=== PATIENT | male | born 1970 ===

== ENCOUNTER 2018-02-14 15:38 | Inpatient (IN) | payer MEDICARE, OTHER, SELFPAY ==
[2018-02-14] MEDS ORDERED: Naloxone HCl 2 mg/2 ml Syringe ONE (15:40)
[2018-02-14] MEDS ORDERED: Norepinephrine 8 MG/0.9% NS 250 ML ONE (15:56)
[2018-02-14] MEDS ORDERED: Amiodarone HCl 450 MG, Admixture Fee 1 EACH in Dextrose 5% in Water 250 ML IVPB SCH (16:00)
[2018-02-14] MEDS ORDERED: EPINEPHrine 1 MG, Admixture Fee 1 EACH in Dextrose 5% in Water 250 ML IVPB SCH (16:00)
[2018-02-14] MEDS ORDERED: Potassium Chloride 20 MEQ/100 ML PREMIX BAG ONE (16:08)
[2018-02-14 16:10] LABS: Actual Bicarbonate (HCO3a) 22.9 mEq/L (22-26); Base Excess (BEa) -1.1 mEq/L (0 (+/-) 2.5); CO2 Tension 36.1 mmHg (35.0-45.0); O2 Tension (PaO2) 43.7 mmHg (80.0-100.0); pH, Arterial 7.42 (7.35-7.45)
[2018-02-14 16:11] LABS: Calcium, Ionized 0.8 mmol/L (1.12-1.30); Hematocrit-ABG 34.6 % (42.0-52.0); Hemoglobin (Hb) 13.3 g/dL (14.0-18.0)
[2018-02-14 16:12] LABS: ALV-art Gradient 621.175 (0-20); Analyzer IN Cardio ER; Puncture Site RRA
[2018-02-14 16:29] LABS: #Basophils 0.1 thou/uL (0.0-0.2); #Eosinphils 0.1 thou/uL (0.0-0.7); #Lymphocytes 3.1 thou/uL (1.20-3.40); #Monocytes 0.4 thou/uL (0.11-0.59); #Neutrophils 7.2 thou/uL (1.40-6.50); %Basophils 1.2 % (0.0-1.0); %Eosinophils 1.2 % (0.0-10.0); %Lymphocytes 28.4 % (21.0-51.0); %Monocytes 3.6 % (0.0-10.0); %Neutrophils 65.5 % (42.0-75.0); Hemoglobin 14.3 g/dL (14.0-18.0); Mean Corpuscular HGB CONC 31.8 g/dL (32.0-36.0); Mean Corpuscular Hemoglobin 32.7 pg (27.0-31.0); Mean Platelet Volume 7.3 fL (7.4-10.4); Platelet Count 181 thou/uL (130-400); RBC Distribution Width 13.2 % (11.5-14.5); Red Blood Cell (RBC) Count 4.36 mill/uL (4.70-6.10)
--- NOTE | 2018-02-14 16:33 | RAD ---
PORTABLE CHEST ONE VIEW: Date: 02-14-18 Time: 3:58 p.m. History: Respiratory failure. CPR. FINDINGS/IMPRESSION: There is a endotracheal tube with the tip at the level of the clavicular heads. There is a right subc lavian central line with tip in the projection of the right atrium. The heart size is normal. There i s pulmonary vascular congestion with patchy opacities in the right suprahilar and infrahilar lung zon es. No pneumothoraces or large effusions are seen. POS: OFF
[2018-02-14 16:39] LABS: CKMB 1.5 ng/mL (0-6.6); Troponin I Less than 0.010 ng/mL (< 0.028)
[2018-02-14 16:44] LABS: INR-International Normal Ratio 1.4; Prothrombin Time 17.1 SEC (12.0-14.7)
[2018-02-14] MEDS ORDERED: EPINEPHrine 4 MG in Dextrose 5% in Water 250 ML IV SCH (16:45)
[2018-02-14 16:56] LABS: ALT (SGPT) 343 U/L (8-55); AST (SGOT) 860 U/L (5-34); Alkaline Phosphatase 83 U/L (40-150); Anion Gap 13 mmol/L (10-20); BUN (Urea Nitrogen) Less than 4 mg/dL (8.9-20.6); Bilirubin, Total 0.5 mg/dL (0.2-1.2); CK (CPK) 369 U/L (30-200); Calc. Creatinine Clearance 0 mL/min (70-130); Calcium 9.1 mg/dL (7.8-10.44); Carbon Dioxide 15 mmol/L (22-29); Chloride 122 mmol/L (98-107); Estimated GFR-MDRD Greater than 90; Globulin 1.5 g/dL (2.4-3.5); Glucose 253 mg/dL (70-105); Protein, Total 3.5 g/dL (6.0-8.3); Sodium 147 mmol/L (136-145)
[2018-02-14] MEDS ORDERED: Atropine Sulfate 1 mg/10 ml Syringe ONE (17:00)
[2018-02-14] MEDS ORDERED: Calcium Chloride 1 GM/10 ML Abboject SYRINGE ONE (17:00)
[2018-02-14] MEDS ORDERED: Sodium Bicarb 50 MEQ/50 ML Abboject 8.4% SYRINGE ONE (17:00)
[2018-02-14] MEDS ORDERED: EPINEPHrine 1 MG/10 ML Abboject SYRINGE ONE (17:00)
[2018-02-14 17:05] LABS: Magnesium 1.3 mg/dL (1.6-2.6)
[2018-02-14 17:07] LABS: Phosphorus 1.3 mg/dL (2.3-4.7)
[2018-02-14] MEDS ORDERED: Magnesium Sulfate 2 GM/100 ML BAG ONE (17:10)
[2018-02-14] MEDS ORDERED: SODIUM CHLORIDE 0.9% IVPB ONE (17:30)
[2018-02-14] MEDS ORDERED: SODIUM PHOSPHATE IVPB ONE (17:30)
--- NOTE | 2018-02-14 17:33 | HP ---
PRIMARY CARE PHYSICIAN: Sae Head M.D. REASON FOR ADMISSION/CHIEF COMPLAINT: Transfer from [facility] for respiratory failure/drug overdose/ hypotension/status post CPR. HISTORY OF PRESENT ILLNESS: The patient is a 47-year-old male with unknown past medical history, was brought into [facility] for overdose. Apparently, the patient was in standoff with police department . He then locked himself and took several of his home medications and drank alcohol. He was found l ethargic and was brought into the emergency room. In the emergency room, his initial vital signs showed heart rate of 67 with blood pressure of 122/84. He was unresponsive and was subsequently intubated in the emergency room. He then was started on e pinephrine after a central line placement. EMS found empty bottles of several of his home medication s including hydrocodone, morphine sulfate, Valium, propranolol, amitriptyline, ibuprofen and Benadryl . On his way to [place], patient was started on CPR almost for 30-35 minutes. At this time, patient is o n mechanical ventilation with epinephrine, norepinephrine and amiodarone drip. He was found to have prolonged QT interval. He has received calcium chloride, glucagon bolus and has been started on drip along with Narcan. PAST MEDICAL HISTORY: Cannot be obtained from the patient due to current cognitive status. No famil y at the bedside. PAST SURGICAL HISTORY: Cannot be obtained from the patient due to current cognitive status. No fami ly at the bedside. ALLERGIES: Cannot be obtained from the patient due to current cognitive status. No family at the [facility]. HOME MEDICATIONS: Cannot be obtained from the patient due to current cognitive status. No family at the bedside. SOCIAL HISTORY: Cannot be obtained from the patient due to current cognitive status. No family at t bedside. FAMILY HISTORY: Cannot be obtained from the patient due to current cognitive status. No family at [facility] bedside. REVIEW OF SYSTEMS: Cannot be obtained from the patient due to current cognitive status. No family a t the bedside. PHYSICAL EXAMINATION: CURRENT VITAL SIGNS: Showed respirations of 18 on mechanical ventilation, pulse rate of 54, blood pr essure of 108/82 with O2 saturation of 81% on mechanical ventilation. GENERAL: A 47-year-old male, intubated on mechanical ventilation, unresponsive. HEENT: Head is atraumatic, normocephalic. Pupils are around 7 mm not equally round. Corneal reflex was negative. Pupils were sluggishly reacting to light. NECK: Neck collar noted. HEART: S1 and S2 present. Decreased air entry at bilateral bases. No wheezing or rhonchi. No rubs or gallops appreciated. No heaves or pulsation. ABDOMEN: Soft. Bowel sounds present. No peritoneal signs. No rigidity. EXTREMITIES: No edema or calf tenderness. NEUROLOGIC/PSYCHIATRIC: Examination could not be done due to current cognitive status. SKIN: Warm and dry. LYMPH NODES: No palpable lymph nodes in the neck. LABORATORY DATA AND IMAGING DATA: 1. CBC showed WBC of 11 with hemoglobin 14.3, INR of 1.4. ABG showed pH 7.42 with pCO2 36.1, bicarb earline 22.9, pO2 43.7 with saturation in 80s. 2. Chemistries showed sodium 147, potassium 3, chloride 122, bicarbonate 15, BUN less than 4, creati nine 0.66, AST of 860, and ALT 343. 3. Chest x-ray by my review was negative for infiltrate. EKG by my review showed sinus bradycardia with prolonged QT and nonspecific ST-T wave changes. IMPRESSION: 1. Drug overdose with tricyclic antidepressants, beta blockers, benzodiazepines, opioids, and Soma. 2. Acute hypoxic respiratory failure. 3. Shock secondary to #1 on pressors. 4. Status post more than 30 minutes of CPR. 5. Hypokalemia. 6. Abnormal liver function tests, probably secondary to shock liver. 7. Prolonged QT. PLAN: The patient will be monitored in the Intensive Care Unit. We will continue pressors. Amiodar one drip will be discontinued. I confirmed with Dr. Cohn. Critical Care will be consulted and has been notified. We will continue IV fluids with bicarbonate. We will monitor QT interval. Continue glucagon drip. We will continue epinephrine and norepinephrine. We will check cortisol level. We will monitor electrolytes closely. Plan of care will be discussed with the family when they arrive.
[2018-02-14 17:44] LABS: Acetaminophen Less than 6.0 mcg/mL (10.0-30.0); Alcohol 187 mg/dL (Less than 10); Salicylate Less than 8.0 mg/dL (15.0-30.0)
[2018-02-14] MEDS ORDERED: Sodium Bicarbonate 150 MEQ in Dextrose 5 %-0.45 % NaCl 1,000 ML IV SCH (19:00)
[2018-02-14 19:03] LABS: Bilirubin Negative (Negative); Blood, Urine Negative (Negative); Clarity CLEAR (Clear); Glucose, Urine (Dipstick) 500 mg/dL (Negative); Leukocyte Negative (Negative); Nitrite Negative (Negative); Protein, Urine (Dipstick) Negative (Neg-Trace); Specific Gravity, Urine 1.012 (1.002-1.036); Urobilinogen 0.2 mg/dL (0.2-1.0); pH, Urine 6.5 (5.0-9.0)
[2018-02-14] MEDS ORDERED: Insulin Regular 100 units/100 ml in NS IVPB SCH (19:15)
[2018-02-14] MEDS ORDERED: DEXTROSE 70% IV SCH (19:30)
[2018-02-14] MEDS ORDERED: WATER IVPB ONE ×2 (19:30→20:30)
[2018-02-14] MEDS ORDERED: STERILE WATER IV SCH (19:30)
[2018-02-14] MEDS ORDERED: WATER IV SCH (19:30)
[2018-02-14] MEDS ORDERED: ACETYLCYSTEINE IVPB ONE ×2 (19:30→20:30)
[2018-02-14] MEDS ORDERED: DEXTROSE 5% IVPB ONE ×2 (19:30→20:30)
[2018-02-14] MEDS ORDERED: Bisacodyl 10 MG SUPP PR PRN (20:09)
[2018-02-14] MEDS ORDERED: cefTRIAXone\\ROCEPHIN 1 GM in Sodium Chloride 0.9% 100 ML IVPB SCH (20:09)
[2018-02-14] MEDS ORDERED: CCU Electrolyte Replacement 1 EACH IVPB SCH (20:09)
[2018-02-14] MEDS ORDERED: Lacri-Lube Opth Oint 3.5 GM TUBE EA EYE PRN (20:09)
[2018-02-14] MEDS ORDERED: Dextrose 50% Abboject 50 ML SYRINGE SLOW IVP PRN (20:09)
[2018-02-14] MEDS ORDERED: Dextrose 5% in Water 1,000 ML IV PRN (20:09)
[2018-02-14] MEDS ORDERED: Norepinephrine 8 MG/0.9% NS 250 ML IVPB PRN (20:09)
[2018-02-14] MEDS ORDERED: CCU ELECTROLYTE REPLACEMENT PROTOCOL FS PRN (20:22)
[2018-02-14] MEDS ORDERED: Magnesium Oxide 400 MG TAB PO PRN ×2 (20:22)
[2018-02-14] MEDS ORDERED: Potassium Phosphate 12 MMOL in Sodium Chloride 0.9% 250 ML 250 ML IV PRN (20:22)
[2018-02-14] MEDS ORDERED: Potassium Chloride 20 MEQ TAB PO PRN (20:22)
[2018-02-14] MEDS ORDERED: Magnesium 2 GM/NS 0.9% 100 ML 2 GM in Premix Bag 1 BAG IVPB PRN (20:22)
[2018-02-14] MEDS ORDERED: Potassium Phosphate 9 MMOL in Sodium Chloride 0.9% 100 ML IVPB PRN (20:22)
[2018-02-14] MEDS ORDERED: Potassium Phosphate 15 MMOL in Sodium Chloride 0.9% 250 ML 250 ML IV PRN (20:22)
[2018-02-14] MEDS ORDERED: Potassium Chloride 40 MEQ in Sodium Chloride 0.9% 250 ML 250 ML IVPB PRN (20:22)
[2018-02-14] MEDS ORDERED: Hydrocortisone Sod Succ/PF 100 mg/2 ml Vial IVP SCH (20:30)
[2018-02-14] MEDS ORDERED: SODIUM CHLORIDE 0.9% IVPB SCH ×2 (21:00→22:00)
[2018-02-14] MEDS ORDERED: GLUCAGON IVPB SCH ×2 (21:00→22:00)
[2018-02-14] MEDS: cefTRIAXone\\ROCEPHIN 1 GM, Syringe 0.4 ML in Sterile Water 9.6 ML SLOW IVP SCH (21:55)
[2018-02-14 21:57] LABS: Actual Bicarbonate (HCO3a) 18.1 mEq/L (22-26); Base Excess (BEa) -6.6 mEq/L (0 (+/-) 2.5); CO2 Tension 34.2 mmHg (35.0-45.0); Hematocrit-ABG 45.7 % (42.0-52.0); Hemoglobin (Hb) 15.9 g/dL (14.0-18.0); O2 Tension (PaO2) 66.4 mmHg (80.0-100.0); pH, Arterial 7.34 (7.35-7.45)
[2018-02-14 21:58] LABS: Calcium, Ionized 1.4 mmol/L (1.12-1.30); Puncture Site LINE
[2018-02-14] MEDS: EPINEPHrine 4 MG in Dextrose 5% in Water 250 ML IV SCH ×2 (21:59→23:36)
[2018-02-14] MEDS: Famotidine 40 MG/4 ML VIAL SLOW IVP SCH (22:40)
[2018-02-14] MEDS: Sodium Bicarbonate 150 MEQ in Dextrose 5% in Water 1,000 ML IV SCH (22:43)
[2018-02-14] MEDS: Famotidine 40 MG/5 ML Oral Suspension PER TUBE SCH (22:57)
[2018-02-14] MEDS: Thiamine HCl 200 MG/2 ML VIAL SLOW IVP SCH (22:57)
[2018-02-14] MEDS: Acetylcysteine 20% 200 MG/ML 30 ML VIAL PO SCH (23:38)
[2018-02-14] MEDS ORDERED: Insulin Regular 300 UNITS/3 ML VIAL ONE (23:55)
[2018-02-14] MEDS: Insulin Regular 300 UNITS/3 ML VIAL SC PRN (23:59)
--- NOTE | 2018-02-15 01:20 | CON ---
DATE OF CONSULTATION: 02/14/2018 REASON FOR CONSULTATION: Cardiac arrest secondary to drug overdose. HISTORY OF PRESENT ILLNESS: Mr. Winter is a 47-year-old man, who as per the chart was in an armed s tandoff with the police. At some point, the patient took a drug overdose and was found to be unrespo nsive. He did have a cardiac arrest by report, resuscitated and transferred here. No previously known cardiac history. The medications that he took are unclear, but they found multiple empty medicine bottles, as is outli leela in the chart. No other history is available. The patient is on Levophed and epinephrine. The patient has sinus bradycardia. PHYSICAL EXAMINATION: GENERAL: On examination, this is a 47-year-old man. VITAL SIGNS: Blood pressure 124/85; pulse 53, it is sinus. LUNGS: Clear. CARDIAC: Normal S1, normal S2, but he is bradycardic. ABDOMEN: Soft, nontender. EXTREMITIES: There is no clubbing or cyanosis. There is no edema. SKIN: Warm and dry. PSYCHIATRIC: He is not moving any extremities. There is no withdrawal to painful stimuli and the garcia nd squeezing his fingers. He has no withdrawal from pain. ASSESSMENT: Cardiac arrest, reportedly, related to drug overdose. PLAN: Agree with supportive care. From the notes, he may have taken Soma, ibuprofen, hydrocodone, V alium, Benadryl, amitriptyline, morphine, and possibly beta blockers as well. Supportive care is seema ng given at this point.
[2018-02-15] MEDS: EPINEPHrine 4 MG in Dextrose 5% in Water 250 ML IV SCH ×3 (01:43→06:47)
[2018-02-15] MEDS: Insulin Regular 300 UNITS/3 ML VIAL SC PRN ×2 (04:43→08:37)
--- NOTE | 2018-02-15 04:46 | CON ---
DATE OF CONSULTATION: 02/14/2018 HISTORY OF PRESENT ILLNESS: Mr. Winter is a 47-year-old male. Apparently, he lost a significant other a year ago. I am told he has not been the same since. Apparently in [place] he was in a standoff with the police department. I am told that he was trying to encourage them to shoot him, but I have no verification of this. He then went back into his house, apparently took several different pills. He came to the ICU with empty pill bottles and some full pill bottles. There was a recent prescription for morphine, Valium and Soma that were empty. There was an empty bottle of a beta zach, but this was a 2015 prescription. There was an Elavil bottle that had probably 20 pills in it. There was another pill bottle with multiple different pills in it. Apparently, the patient arrested on the way to [place] after being intubated in the [place] Emergency Room. He had a central line placed and was started on pressors in [place]. He coded en route to [place] and had 30 minutes of CPR, apparently he was coming via ground ambulance since the helicopter could not fly today. No other history is available. PHYSICAL EXAMINATION: VITAL SIGNS: His blood pressure when I saw him was 130 by cuff. He had no A- line. He did have a central line. HEENT: His pupils were fixed and dilated, he had no corneals. He had no gag. NECK: Without lymphadenopathy. LUNGS: Clear. HEART: Regular rhythm. S1 and S2 are normal. ABDOMEN: Soft and without masses. EXTREMITIES: Without asymmetry. LABORATORY DATA: White count 11, hemoglobin 14.3, platelets 181. Sodium 147. Potassium 3, chloride 122, bicarbonate 15, BUN less than 4, creatinine 0.6, glucose 253 and then to the 300s, mag and phosphatase were low. AST, ALT were elevated at 860 and 343. Initial blood gas 7.42, CO2 36, pO2 of 43. Follow up blood gas tonight 7.34, CO2 of 34, PO2 66. IMPRESSION: Status post out of hospital arrest, presumably secondary to either intravascular volume depletion, metabolic acidosis or vasodilation associated with his drugs. I think the most likely culprits are the morphine and Valium and Soma. There is no clear evidence that he took a beta zach. He does have a prolonged QT interval, but his heart rate is in the 50s. He is rapidly coming off pressors, so I think will just continue with supportive care. There is no real benefit to hypothermia in this setting in my opinion based on multiple recent literature opinions. We will continue to give him volume pressors. He need an arterial line. I am concerned that he may not awaken simply because of his arrest. Critical care time 40 minutes excluding procedures. ZEE
--- NOTE | 2018-02-15 04:47 | OP ---
DATE OF PROCEDURE: 02/14/2018 PROCEDURE: Arterial line placement. SURGEON: Dr. Moody Aaron PROCEDURE: His right groin was prepped with chlorhexidine and Betadine. Once his groin was cleaned, right femoral artery was cannulated with a 5-Belarusian introducer needle. A wire was easily passed. A 5-Belarusian catheter was inserted and sewn in place x2. Good waveform was obtained. His blood pressure is actually 20 mm higher from his femoral artery than the last cuff pressure. We will continue to wean pressors. Sterile dressing was applied. ZEE
[2018-02-15 05:05] LABS: Band 2 % (5-11); Hemoglobin 15.3 g/dL (14.0-18.0); Lymphocytes 15 % (21-51); MDiff Complete? YES; Mean Corpuscular Hemoglobin 31.3 pg (27.0-31.0); Mean Platelet Volume 6.7 fL (7.4-10.4); Monocytes 3 % (0-10); Neutrophil 80 % (42-75); Platelet Count 235 thou/uL (130-400); RBC Distribution Width 13.3 % (11.5-14.5); Red Blood Cell (RBC) Count 4.89 mill/uL (4.70-6.10); White Blood Cell (WBC) Count 17.4 thou/uL (4.8-10.8)
[2018-02-15 05:10] LABS: Lactic Acid 7.3 mmol/L (0.5-2.2)
[2018-02-15 05:24] LABS: ALT (SGPT) 926 U/L (8-55); AST (SGOT) 1831 U/L (5-34); Albumin 2.8 g/dL (3.5-5.0); Alkaline Phosphatase 131 U/L (40-150); Anion Gap 16 mmol/L (10-20); BUN (Urea Nitrogen) 7 mg/dL (8.9-20.6); Bilirubin, Total 0.4 mg/dL (0.2-1.2); Calc. Creatinine Clearance 0 mL/min (70-130); Calcium 8.6 mg/dL (7.8-10.44); Carbon Dioxide 19 mmol/L (22-29); Chloride 113 mmol/L (98-107); Estimated GFR-MDRD Greater than 90; Globulin 1.6 g/dL (2.4-3.5); Glucose 301 mg/dL (70-105); Potassium 2.2 mmol/L (3.5-5.1); Protein, Total 4.4 g/dL (6.0-8.3); Sodium 146 mmol/L (136-145)
[2018-02-15] MEDS: Sodium Bicarbonate 150 MEQ in Dextrose 5% in Water 1,000 ML IV SCH ×3 (06:46→23:50)
[2018-02-15] MEDS: Potassium Chloride 40 MEQ in Premix Bag 1 BAG IVPB PRN ×2 (06:46→13:13)
[2018-02-15] MEDS: Hydrocortisone Sod Succ/PF 100 mg/2 ml Vial IVP SCH ×3 (06:47→22:22)
[2018-02-15] MEDS: Acetylcysteine 20% 200 MG/ML 30 ML VIAL PO SCH ×4 (06:47→23:38)
[2018-02-15 07:02] LABS: Actual Bicarbonate (HCO3a) 19.6 mEq/L (22-26); Base Excess (BEa) -2.3 mEq/L (0 (+/-) 2.5); CO2 Tension 27.2 mmHg (35.0-45.0); Hematocrit-ABG 41.7 % (42.0-52.0); Hemoglobin (Hb) 14.7 g/dL (14.0-18.0); O2 Tension (PaO2) 89.2 mmHg (80.0-100.0); pH, Arterial 7.48 (7.35-7.45)
[2018-02-15 07:03] LABS: Puncture Site ALINE
[2018-02-15] MEDS: Famotidine 40 MG/4 ML VIAL SLOW IVP SCH ×2 (08:37→22:38)
[2018-02-15] MEDS: Famotidine 40 MG/5 ML Oral Suspension PER TUBE SCH ×2 (08:41→22:22)
--- NOTE | 2018-02-15 08:47 | RAD ---
AP CHEST: Indication: Intubation. Comparison: 02-08-18 FINDINGS: Airspace opacities within the perihilar region persists, but is improved. This may reflect resolving perihilar edema. Right subclavian central venous catheter and ET tube and vascular catheter are uncha nged. No pneumothorax is evident. IMPRESSION: Improving perihilar opacities may reflect improving pneumonia or edema. Continued follow up is recomm ended. Tubes and lines are unchanged in position. POS: [facility]
[2018-02-15 09:36] LABS: Lactic Acid 3.1 mmol/L (0.5-2.2)
--- NOTE | 2018-02-15 09:43 | PRG ---
DATE OF SERVICE: 02/15/2018 SUBJECTIVE: Mr. Winter remains intubated and ventilated. He is on the lower doses of epinephrine. He remains unresponsive. PHYSICAL EXAMINATION: VITAL SIGNS: His blood pressure is 126/84; pulse is 58, sinus. LUNGS: Clear of any wheezing. There is a positive rhonchi. CARDIAC: Normal S1 and normal S2. ABDOMEN: Soft, nontender. EXTREMITIES: There is no edema. They are cool, but not cold. He does not withdraw from stimuli to the hands. I squeezed the tip of his fingertip. He does not withdraw at all. Echocardiogram reveals the ejection fraction is normal, but there is a mass in the right atrium, whic h is mobile. I suspect this is probably thrombus. ASSESSMENT: 1. Status post cardiac arrest, related to drug overdose. 2. Hypoxic brain injury. 3. Probable thrombus, right side of his heart. PLAN: We will anticoagulate. PROGNOSIS: Unfortunately is very poor in this gentleman.
[2018-02-15] MEDS: Enoxaparin Sodium 80 MG/0.8 ML SYRINGE SC SCH ×2 (10:16→22:22)
[2018-02-15 12:58] LABS: Potassium 2.6 mmol/L (3.5-5.1)
--- NOTE | 2018-02-15 19:10 | PDOC.PN ---
- Subjective Encounter Start Date: 02/15/18 Encounter Start Time: 11:30 -: non-verbal Patient seen and examined. On [facility] Vent - Objective Resuscitation Status: Resuscitation Status DNR:Do Not Resuscitate Vital Signs & Weight: Vital Signs (12 hours) Temp Pulse Resp BP Pulse Ox 02/15/18 18:48 69 02/15/18 18:00 26 H 02/15/18 17:00 97.9 F 02/15/18 16:00 26 H 02/15/18 15:33 66 128/111 H 02/15/18 14:00 26 H 02/15/18 13:30 60 137/116 H 02/15/18 12:00 96.5 F L 26 H 02/15/18 10:25 59 L 147/96 H 02/15/18 10:00 26 H 02/15/18 08:00 96.2 F L 57 L 26 H 98 02/15/18 07:17 57 L 154/82 H Weight Admit Weight 194 lb 0.108 oz Weight 194 lb 0.108 oz Most Recent Monitor Data Heart Rate from ECG 69 NIBP 132/82 NIBP BP-Mean 93 Respiration from ECG 26 SpO2 96 I&O: 02/14/18 02/15/18 02/16/18 06:59 06:59 06:59 Intake Total 3665 1005 Output Total 3510 360 Balance 155 645 Result Diagrams: 02/15/18 04:35 02/15/18 12:26 Additional Labs: Accuchecks 02/15/18 02/15/18 02/15/18 17:19 11:59 08:36 POC Glucose 130 H 137 H 185 H 02/15/18 02/14/18 02/14/18 04:38 23:53 20:19 POC Glucose 269 H 343 H 354 H Laboratory Tests 02/14/18 02/15/18 02/15/18 16:19 04:35 04:35 Potassium 2.2 L* Lactic Acid 7.3 H* Phosphorus 1.3 L Magnesium 1.3 L AST 1831 H ALT 926 H 02/15/18 09:05 Potassium Lactic Acid 3.1 H Phosphorus Magnesium AST ALT Radiology Reviewed by me: Yes (CXR - B/L infiltrates) EKG Reviewed by me: Yes (Tele SR) Phys Exam - Physical Examination Constitutional: NAD Respiratory: no wheezing Coarse BS B/L, Symmetrical Cardiovascular: RRR, no rub no heaves/pulsations Gastrointestinal: soft, non-tender, positive bowel sounds no guarding Musculoskeletal: no edema Neuro/Psych - Cannot assess due to current cognition Dx/Plan - Plan continue antibiotics, DVT proph w/lovenox, DVT proph w/SCDs IMPRESSION: 1. Drug overdose with tricyclic antidepressants, beta blockers, benzodiazepines , opioids, and Soma. 2. Acute hypoxic respiratory failure on mech Vent 3. Hypotensive shock secondary to #1 on pressors. 4. Status post more than 30 minutes of CPR. 5. Hypokalemia/Hypomagnesemia/Hypophosphatemia 6. Abnormal liver function tests, probably secondary to shock liver. 7. Prolonged QT. 8. Intracardiac thrombus 9. Suspected hypoxic brain injury PLAN: * Cont Ceftriaxone * Cont bicarb drip * Critical care/Cardio following * AM labs * Replace Potassium * Cont current meds as below Review of Systems - Review of Systems Other: Cannot be obtained due to current mentation - Medications/Allergies Allergies/Adverse Reactions: Allergies Allergy/AdvReac Type Severity Reaction Status Date / Time No Allergy Information Allergy Unverified 02/14/18 15:50 Available Medications: Current Medications Acetylcysteine (Mucomyst 20%) 600 mg PO Q6HR [facility] Last Admin: 02/15/18 18:34 Dose: 600 mg Albuterol/Ipratropium (Duoneb) 3 ml NEB [id number] [facility] Last Admin: 02/15/18 18:47 Dose: 3 ml Albuterol/Ipratropium (Duoneb) 3 ml NEB Q6H PRN PRN Reason: SOB &/or Wheezing Bisacodyl (Dulcolax) 10 mg VT Q24H PRN PRN Reason: Constipation Calcium Carbonate (Tums) 1,000 mg PO Q4H PRN PRN Reason: Heartburn or Indigestion Dextrose/Water (Dextrose 50%) 25 gm SLOW IVP PRN PRN PRN Reason: Hypoglycemia Enoxaparin Sodium (Lovenox) 80 mg SC 0900,2100 [facility] Last Admin: 02/15/18 10:16 Dose: 80 mg Famotidine (Pepcid) 20 mg PER TUBE BID [facility] Last Admin: 02/15/18 08:41 Dose: Not Given Famotidine (Pepcid) 20 mg SLOW IVP Q12HR [facility] Last Admin: 02/15/18 08:37 Dose: 20 mg Hydrocortisone Sodium Succinate (Solu-Cortef) 100 mg IVP Q8HR [facility] Last Admin: 02/15/18 13:11 Dose: 100 mg Dextrose/Water/ Sterile Water 1,000 mls @ 185 mls/hr IV INF [facility] Sodium Bicarbonate 150 meq/ (Dextrose/Water) 1,150 mls @ 125 mls/hr IV .Q9H12M [facility] Last Admin: 02/15/18 06:46 Dose: 1,150 mls Norepinephrine Bitartrate (Levophed) 250 mls @ 0 mls/hr IVPB PRN PRN; Protocol ; Titrate PRN Reason: To maintain MAP > 65 Dextrose/Water (D5w) 1,000 mls @ 0 mls/hr IV .Q0M PRN; As Directed PRN Reason: Hypoglycemia Epinephrine 4 mg/ Dextrose/ (Water) 254 mls @ 0 mls/hr IV INF [facility]; Titrate PRN Reason: Protocol Last Admin: 02/15/18 06:47 Dose: 254 mls Ceftriaxone Sodium 1 gm/ (Syringe 0.4 ml/ Sterile Water) 10 mls @ 120 mls/hr SLOW IVP 2100 [facility] Last Admin: 02/14/18 21:55 Dose: 10 mls Potassium Chloride 40 meq/ (Sodium Chloride) 270 mls @ 135 mls/hr IVPB ASDIR PRN PRN Reason: FOR SERUM K+ 2.5 - 3.5 Potassium Chloride 40 meq/ (Device) 100 mls @ 50 mls/hr IVPB ASDIR PRN PRN Reason: FOR SERUM K+ 2.5 - 3.5 Last Admin: 02/15/18 13:13 Dose: 100 mls Magnesium Sulfate 1 gm/ Sodium (Chloride) 102 mls @ 102 mls/hr IV PRN PRN PRN Reason: MAG LEVEL 1.4 - 2.0 Magnesium Sulfate 2 gm/ Device 100 mls @ 100 mls/hr IVPB ASDIR PRN PRN Reason: MAGNESIUM < 1.4 Potassium Phosphate 9 mmol/ (Sodium Chloride) 103 mls @ 25.75 mls/hr IVPB ASDIR PRN PRN Reason: Phosphate 1.0-1.8 Potassium Phosphate 12 mmol/ (Sodium Chloride) 254 mls @ 63.5 mls/hr IV ASDIR PRN PRN Reason: Serum phosphate 0.5-0.9 Potassium Phosphate 15 mmol/ (Sodium Chloride) 255 mls @ 63.75 mls/hr IV ASDIR PRN PRN Reason: Serum Phos < 0.5 Insulin Human Regular (Humulin R) 0 units SC .MILD SLIDING SCALE PRN PRN Reason: Mild Correctional Scale Last Admin: 02/15/18 08:37 Dose: 2 unit Magnesium Oxide (Magnesium Oxide) 400 mg PO BIDPRN PRN PRN Reason: FOR SERUM MAG 1.4 - 2.0 Magnesium Oxide (Magnesium Oxide) 800 mg PO PRN PRN PRN Reason: FOR SERUM MAG < 1.4 Mineral Oil/White Petrolatum (Lacri-Lube Ointment) 0 gm EA EYE PRN PRN PRN Reason: Dry Eyes Miscellaneous Medication (Phos-Nak) 1 pkt PO TIDPRN PRN PRN Reason: FOR PHOS LEVEL 1.0 - 1.8 Miscellaneous Medication (Phos-Nak) 2 pkt PO TIDPRN PRN PRN Reason: FOR PHOS LEVEL 0.5 - 1.0 Ccu Electrolyte (Replacement Protocol) 0 each FS PRN PRN PRN Reason: FOR ELECTROLYTE REPLACEMENT Ondansetron HCl (Zofran Odt) 4 mg PO Q6H PRN PRN Reason: Nausea/Vomiting Ondansetron HCl (Zofran) 4 mg IVP Q6H PRN PRN Reason: Nausea/Vomiting Potassium Chloride (K-Dur) 40 meq PO ASDIR PRN PRN Reason: FOR SERUM K+ 2.5 - 3.5 Potassium Chloride (Klor-Con) 40 meq PER TUBE ASDIR PRN PRN Reason: FOR SERUM K+ 2.5-3.5 Thiamine HCl (Thiamine Hcl) 100 mg SLOW IVP Q24HR [facility] Last Admin: 02/14/18 22:57 Dose: 100 mg
[2018-02-15] MEDS: cefTRIAXone\\ROCEPHIN 1 GM, Syringe 0.4 ML in Sterile Water 9.6 ML SLOW IVP SCH (22:44)
[2018-02-15] MEDS: Thiamine HCl 200 MG/2 ML VIAL SLOW IVP SCH (22:45)
[2018-02-16 05:06] LABS: Band 10 % (5-11); Lymphocytes 7 % (21-51); MDiff Complete? YES; Mean Corpuscular HGB CONC 33.8 g/dL (32.0-36.0); Mean Corpuscular Hemoglobin 32.6 pg (27.0-31.0); Mean Corpuscular Volume 96.4 fl (80.0-94.0); Mean Platelet Volume 7.1 fL (7.4-10.4); Monocytes 4 % (0-10); Neutrophil 79 % (42-75); Platelet Count 141 thou/uL (130-400); RBC Distribution Width 13.2 % (11.5-14.5); Red Blood Cell (RBC) Count 3.98 mill/uL (4.70-6.10)
[2018-02-16 05:13] LABS: ALT (SGPT) 429 U/L (8-55); AST (SGOT) 328 U/L (5-34); Albumin 2.4 g/dL (3.5-5.0); Alkaline Phosphatase 102 U/L (40-150); Anion Gap 9 mmol/L (10-20); BUN (Urea Nitrogen) 10 mg/dL (8.9-20.6); Bilirubin, Total 0.5 mg/dL (0.2-1.2); Calc. Creatinine Clearance 182 mL/min (70-130); Calcium 7.4 mg/dL (7.8-10.44); Carbon Dioxide 30 mmol/L (22-29); Chloride 108 mmol/L (98-107); Estimated GFR-MDRD Greater than 90; Globulin 1.7 g/dL (2.4-3.5); Glucose 128 mg/dL (70-105); Phosphorus 3.4 mg/dL (2.3-4.7); Potassium 2.6 mmol/L (3.5-5.1); Protein, Total 4.1 g/dL (6.0-8.3); Sodium 144 mmol/L (136-145)
[2018-02-16] MEDS: Acetylcysteine 20% 200 MG/ML 30 ML VIAL PO SCH ×3 (06:12→18:59)
[2018-02-16] MEDS: Hydrocortisone Sod Succ/PF 100 mg/2 ml Vial IVP SCH (06:12)
[2018-02-16] MEDS: Potassium Chloride 40 MEQ in Premix Bag 1 BAG IVPB PRN ×2 (06:13→11:41)
--- NOTE | 2018-02-16 08:39 | PRG ---
DATE OF SERVICE: 02/16/2018 SUBJECTIVE: Mr. Winter is actually waking up some, moving extremities. OBJECTIVE: VITAL SIGNS: His blood pressure 136/93 and pulse 78 and regular. LUNGS: Clear. CARDIAC: Normal S1 and normal S2. ABDOMEN: Soft and nontender. EXTREMITIES: Warm and dry. LABORATORY DATA: Patient's potassium is 2.6. Echocardiogram, as mentioned, did look like he has what is probably thrombus in the right atrium. ASSESSMENT: 1. Status post drug overdose, resulting in pulmonary and cardiac arrest. 2. Hypoxic brain injury. 3. Hypokalemia. 4. What appears to be intracardiac thrombus. PLAN: 1. Continue enoxaparin. 2. Replace potassium. 3. The intensivists are managing fluids. PROGNOSIS: Remains guarded. Dr. Chavez will be available this weekend if needed.
[2018-02-16 08:52] LABS: Actual Bicarbonate (HCO3a) 26.3 mEq/L (22-26); Base Excess (BEa) 5.7 mEq/L (0 (+/-) 2.5); CO2 Tension 27.1 mmHg (35.0-45.0); O2 Tension (PaO2) 60.8 mmHg (80.0-100.0); pH, Arterial 7.61 (7.35-7.45)
[2018-02-16 08:53] LABS: Hematocrit-ABG 38.6 % (42.0-52.0); Hemoglobin (Hb) 13.4 g/dL (14.0-18.0); Puncture Site ALINE
[2018-02-16 08:54] LABS: ALV-art Gradient 190.525 (0-20)
--- NOTE | 2018-02-16 09:25 | RAD ---
PORTABLE CHEST 1 VIEW: Date: 02/16/18 Time: 0501 hours HISTORY: Respiratory distress. FINDINGS/IMPRESSION: Line and tube positions are unchanged. The heart size is normal. No pneumothoraces are seen. Perihila r opacities are present. There is atelectatic change versus consolidation in the left lung base. POS: [facility]
[2018-02-16] MEDS: Enoxaparin Sodium 100 MG/ML SYRINGE SC SCH ×2 (09:50→20:49)
[2018-02-16] MEDS: Famotidine 40 MG/5 ML Oral Suspension PER TUBE SCH ×2 (09:51→20:52)
[2018-02-16] MEDS: Sodium Bicarbonate 150 MEQ in Dextrose 5% in Water 1,000 ML IV SCH (09:51)
[2018-02-16] MEDS: Famotidine 40 MG/4 ML VIAL SLOW IVP SCH (09:52)
--- NOTE | 2018-02-16 10:00 | PRG ---
DATE OF SERVICE: 02/15/2018 SUBJECTIVE: Mr. Winter' family still not at the bedside. They were at the bedside last night. The y apparently left as soon as he was in the ICU. His father was contacted by phone and said he is com ing up this afternoon. I wanted to meet with him. He was contacted by the nurse this afternoon when he did not show. He informed the nurses something came up, but he was probably going to send his wi fe. OBJECTIVE: VITAL SIGNS: Mr. Winter unfortunately is off pressors. He is afebrile, blood pressure 136/81, hear t rate 67, respiratory rate 26. HEENT: His pupils are fixed and dilated. He has no corneals. I could not get a gag reflex, but thi s afternoon he started coughing with suctioning. LUNGS: Clear. HEART: Regular rhythm. ABDOMEN: Soft. EXTREMITIES: Without asymmetry. He does not respond to sternal rub. Chest radiograph shows perihilar infiltrates that actually compared to last night were improved. An echocardiogram was ordered shows a normal ejection fraction. He has a right atrial mass. He is n o reason to have a clot in his right atrium and I would wonder if this is in an atrial myxoma. IMPRESSION: 1. Anoxic brain injury after ran out of hospital arrest. 2. Suicide attempt with a polypharmaceutical overdose after a standoff with the police reportedly. 3. Atrial mass. He has severe anoxic injury. 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 He most certainly will not fully recover from this and its unlikely he will survive in my opinion. We will continue to take care of him, I was hoping to meet with family, but they have not been up he re since he arrived last night. I am not sure what the family dynamics are but it has been relayed t o the family that is not anticipated that he will recover from this. Critical care time was 30 minutes. His blood gas shows a pH of 7.48, CO2 27, and pO2 of 89. He was on a rate of 26. We will turn his r ate down to 18.
[2018-02-16 10:50] LABS: Potassium 2.8 mmol/L (3.5-5.1)
[2018-02-16] MEDS ORDERED: Potassium Chloride 40 MEQ in Premix Bag 1 BAG IVPB SCH (11:45)
[2018-02-16] MEDS ORDERED: Magnesium 2 GM/NS 0.9% 100 ML 2 GM in Premix Bag 1 BAG IVPB SCH (11:45)
--- NOTE | 2018-02-16 11:57 | PRG ---
DATE OF SERVICE: 02/16/2018 SERVICE: Pulmonary Medicine INTERVAL HISTORY: The patient has done well from a mentation standpoint. He is starting to nod yes and no. He is moving all 4 extremities. Whenever he gets intermittently agitated, but can be calmed back down with voice. He denies any current chest pain, shortness of breath. PHYSICAL EXAMINATION: VITAL SIGNS: Afebrile, T-max of 99.7. Pulse 85, blood pressure 121/80, respirations 23, saturation 98% on 21% FiO2 and a PEEP of 5. HEENT: Normocephalic, atraumatic. Sclerae are white, conjunctivae pink. Oral mucosa is moist witho ut lesions. LUNGS: Decent air entry. Rhonchi are present. No prolonged expiratory phase. HEART: Normal rate, regular. ABDOMEN: Soft, nontender, nondistended. Bowel sounds are positive. MUSCULOSKELETAL: No cyanosis or clubbing. There is no pitting in the bilateral lower extremities. NEUROLOGIC: Grossly nonfocal. LABORATORY DATA: WBC 16.0, hemoglobin 13.0, platelets 141,000. Band count is 10% and up trending. INR 1.4. PH 7.61, pCO2 27, pO2 61 on 40% FiO2 at the time. Potassium 2.8 and gently up trending. A ST and ALT are both down trending. Magnesium 1.0. Urinalysis is unremarkable. Plasma alcohol was u nremarkable. Salicylate and acetaminophen are also negative. IMAGING: Chest x-ray demonstrates no pneumothorax. Lines and tubes are stable. Endotracheal tube t erminates roughly 5 cm above the level of the lila. There is no obvious infiltrate present. The l eft base is cut off. IMAGING: Echocardiogram demonstrates normal ejection fraction. There is a large mass in the right atrium which is mobile, suspicious for thrombus. ASSESSMENT: 1. Respiratory failure. 2. Metabolic encephalopathy. 3. Suicide attempt, secondary to polysubstance drug overdose. 4. Left ventricular thrombus. PLAN: We will initiate some lactulose. I will replace potassium and magnesium fairly aggressively. Multiple ventilator adjustments have been made to improve patient comfort. We will put him on a CPA P trial at this point. When he wakes up well enough, we will consider him for extubation moving forw ministerio. Empiric antibiotics will be initiated. His band count and white count are both going up and he has significant down time. Pulmonary Critical Care will continue to follow while the patient remain s in this location. Critical care time: 30 minutes.
[2018-02-16] MEDS: 1/2 NS w/KCL 20 mEq 1,000 ML IV SCH ×2 (18:58)
[2018-02-16] MEDS: Thiamine HCl 200 MG/2 ML VIAL SLOW IVP SCH (20:50)
[2018-02-16] MEDS: cefTRIAXone\\ROCEPHIN 1 GM, Syringe 0.4 ML in Sterile Water 9.6 ML SLOW IVP SCH (20:55)
--- NOTE | 2018-02-16 23:22 | PDOC.PN ---
- Subjective Encounter Start Date: 02/16/18 Encounter Start Time: 14:00 -: non-verbal Patient seen and examined. on [facility] Vent. Follows commands to some extent intermittently - Objective Resuscitation Status: Resuscitation Status DNR:Do Not Resuscitate MAR Reviewed: Yes Vital Signs & Weight: Vital Signs (12 hours) Temp Pulse Resp BP Pulse Ox 02/16/18 22:36 98 02/16/18 22:00 34 H 02/16/18 20:00 99.1 F 94 33 H 91 L 02/16/18 18:45 98 35 H 93 L 02/16/18 18:00 35 H 02/16/18 16:21 96 119/78 02/16/18 16:00 99.0 F 32 H 02/16/18 14:33 92 28 H 98 02/16/18 14:00 32 H 02/16/18 13:02 90 120/77 02/16/18 12:00 98.6 F 28 H Weight Admit Weight 194 lb 0.108 oz Weight 196 lb 3.382 oz Most Recent Monitor Data Heart Rate from ECG 100 NIBP 123/87 NIBP BP-Mean 96 Respiration from ECG 28 SpO2 95 I&O: 02/15/18 02/16/18 02/17/18 06:59 06:59 06:59 Intake Total 3665 2597 723 Output Total 3510 1475 1763 Balance 155 1122 -1040 Result Diagrams: 02/17/18 05:00 02/17/18 05:00 Additional Labs: Accuchecks 02/16/18 02/16/18 02/16/18 16:37 08:01 04:40 POC Glucose 112 H 92 123 H 02/15/18 23:47 POC Glucose 115 H Radiology Reviewed by me: Yes (CXR - no new infiltrates) EKG Reviewed by me: Yes (Tele SR) Phys Exam - Physical Examination Constitutional: NAD Neck: no JVD Respiratory: no wheezing, no rhonchi Cardiovascular: RRR, no significant murmur, no rub no heaves/pulsations Gastrointestinal: soft, non-tender, no distention, positive bowel sounds Musculoskeletal: no edema Neuro/Psych - cannot assess due to current mentation Dx/Plan - Plan hill catheter, continue antibiotics, DVT proph w/lovenox IMPRESSION: 1. Suicidal drug overdose with tricyclic antidepressants, beta blockers, benzodiazepines, opioids, and Soma. 2. Acute hypoxic respiratory [facility] 3. Hypotensive shock secondary to #1 requiring pressors. 4. s/p > 30 minutes of CPR. 5. Hypokalemia/Hypomagnesemia/Hypophosphatemia 6. Abnormal liver function tests, probably secondary to shock liver. 7. Prolonged QT. 8. Intracardiac thrombus - on anticoagulation 9. ?hypoxic brain injury PLAN: * Cont Ceftriaxone * Off bicarb drip * Cont 1/2 NS with KCL * Critical care/Cardio following * AM labs * Replace Potassium * Cont current meds as below Review of Systems - Review of Systems Other: Cannot obtain due to sedation - Medications/Allergies Allergies/Adverse Reactions: Allergies Allergy/AdvReac Type Severity Reaction Status Date / Time No Allergy Information Allergy Unverified 02/14/18 15:50 Available Medications: Current Medications Acetylcysteine (Mucomyst 20%) 600 mg PO Q6HR [facility] Last Admin: 02/16/18 18:59 Dose: 600 mg Albuterol/Ipratropium (Duoneb) 3 ml NEB [id number] [facility] Last Admin: 02/16/18 18:45 Dose: 3 ml Albuterol/Ipratropium (Duoneb) 3 ml NEB Q6H PRN PRN Reason: SOB &/or Wheezing Bisacodyl (Dulcolax) 10 mg NE Q24H PRN PRN Reason: Constipation Calcium Carbonate (Tums) 1,000 mg PO Q4H PRN PRN Reason: Heartburn or Indigestion Dextrose/Water (Dextrose 50%) 25 gm SLOW IVP PRN PRN PRN Reason: Hypoglycemia Enoxaparin Sodium (Lovenox) 90 mg SC 0900,2100 [facility] Last Admin: 02/16/18 20:49 Dose: 90 mg Famotidine (Pepcid) 20 mg PER TUBE BID [facility] Last Admin: 02/16/18 20:52 Dose: 20 mg Dextrose/Water (D5w) 1,000 mls @ 0 mls/hr IV .Q0M PRN; As Directed PRN Reason: Hypoglycemia Ceftriaxone Sodium 1 gm/ (Syringe 0.4 ml/ Sterile Water) 10 mls @ 120 mls/hr SLOW IVP 2100 [facility] Last Admin: 02/16/18 20:55 Dose: 10 mls Potassium Chloride 40 meq/ (Sodium Chloride) 270 mls @ 135 mls/hr IVPB ASDIR PRN PRN Reason: FOR SERUM K+ 2.5 - 3.5 Potassium Chloride 40 meq/ (Device) 100 mls @ 50 mls/hr IVPB ASDIR PRN PRN Reason: FOR SERUM K+ 2.5 - 3.5 Last Admin: 02/16/18 11:41 Dose: 100 mls Magnesium Sulfate 1 gm/ Sodium (Chloride) 102 mls @ 102 mls/hr IV PRN PRN PRN Reason: MAG LEVEL 1.4 - 2.0 Magnesium Sulfate 2 gm/ Device 100 mls @ 100 mls/hr IVPB ASDIR PRN PRN Reason: MAGNESIUM < 1.4 Last Admin: 02/16/18 09:52 Dose: 100 mls Potassium Phosphate 9 mmol/ (Sodium Chloride) 103 mls @ 25.75 mls/hr IVPB ASDIR PRN PRN Reason: Phosphate 1.0-1.8 Potassium Phosphate 12 mmol/ (Sodium Chloride) 254 mls @ 63.5 mls/hr IV ASDIR PRN PRN Reason: Serum phosphate 0.5-0.9 Potassium Phosphate 15 mmol/ (Sodium Chloride) 255 mls @ 63.75 mls/hr IV ASDIR PRN PRN Reason: Serum Phos < 0.5 Potassium Chloride/Sodium Chloride (1/2 Ns W/Kcl 20 Meq) 1,000 mls @ 75 mls/hr IV .[id number] [facility] Last Admin: 02/16/18 18:58 Dose: 1,000 mls Insulin Human Regular (Humulin R) 0 units SC .MILD SLIDING SCALE PRN PRN Reason: Mild Correctional Scale Last Admin: 02/15/18 08:37 Dose: 2 unit Magnesium Oxide (Magnesium Oxide) 400 mg PO BIDPRN PRN PRN Reason: FOR SERUM MAG 1.4 - 2.0 Magnesium Oxide (Magnesium Oxide) 800 mg PO PRN PRN PRN Reason: FOR SERUM MAG < 1.4 Mineral Oil/White Petrolatum (Lacri-Lube Ointment) 0 gm EA EYE PRN PRN PRN Reason: Dry Eyes Miscellaneous Medication (Phos-Nak) 1 pkt PO TIDPRN PRN PRN Reason: FOR PHOS LEVEL 1.0 - 1.8 Miscellaneous Medication (Phos-Nak) 2 pkt PO TIDPRN PRN PRN Reason: FOR PHOS LEVEL 0.5 - 1.0 Ccu Electrolyte (Replacement Protocol) 0 each FS PRN PRN PRN Reason: FOR ELECTROLYTE REPLACEMENT Ondansetron HCl (Zofran Odt) 4 mg PO Q6H PRN PRN Reason: Nausea/Vomiting Ondansetron HCl (Zofran) 4 mg IVP Q6H PRN PRN Reason: Nausea/Vomiting Potassium Chloride (K-Dur) 40 meq PO ASDIR PRN PRN Reason: FOR SERUM K+ 2.5 - 3.5 Potassium Chloride (Klor-Con) 40 meq PER TUBE ASDIR PRN PRN Reason: FOR SERUM K+ 2.5-3.5 Thiamine HCl (Thiamine Hcl) 100 mg SLOW IVP Q24HR [facility] Last Admin: 02/16/18 20:50 Dose: 100 mg
[2018-02-17] MEDS: Acetylcysteine 20% 200 MG/ML 30 ML VIAL PO SCH ×2 (00:54→07:10)
[2018-02-17 06:02] LABS: Band 6 % (5-11); Hemoglobin 11.6 g/dL (14.0-18.0); Lymphocytes 8 % (21-51); MDiff Complete? YES; Mean Corpuscular HGB CONC 34.1 g/dL (32.0-36.0); Mean Corpuscular Hemoglobin 33.1 pg (27.0-31.0); Mean Corpuscular Volume 97.3 fl (80.0-94.0); Mean Platelet Volume 7.5 fL (7.4-10.4); Monocytes 5 % (0-10); Neutrophil 81 % (42-75); PLT Morphology Comment Appears Decreased; Platelet Count 119 thou/uL (130-400); RBC Distribution Width 13.3 % (11.5-14.5); Red Blood Cell (RBC) Count 3.51 mill/uL (4.70-6.10); White Blood Cell (WBC) Count 13.6 thou/uL (4.8-10.8)
[2018-02-17 06:48] LABS: Albumin 2.5 g/dL (3.5-5.0); Anion Gap 7 mmol/L (10-20); BUN (Urea Nitrogen) 11 mg/dL (8.9-20.6); BUN/Creatinine Ratio 17.19; Calc. Creatinine Clearance 178 mL/min (70-130); Calcium 7.4 mg/dL (7.8-10.44); Carbon Dioxide 28 mmol/L (22-29); Chloride 107 mmol/L (98-107); Estimated GFR-MDRD Greater than 90; Glucose 99 mg/dL (70-105); Magnesium 1.8 mg/dL (1.6-2.6); Phosphorus 2.2 mg/dL (2.3-4.7); Potassium 3.1 mmol/L (3.5-5.1); Sodium 139 mmol/L (136-145)
[2018-02-17] MEDS: Famotidine 40 MG/5 ML Oral Suspension PER TUBE SCH (09:00)
[2018-02-17] MEDS: Enoxaparin Sodium 100 MG/ML SYRINGE SC SCH ×2 (09:52→20:59)
[2018-02-17] MEDS ORDERED: Potassium Chloride 40 MEQ in Premix Bag 1 BAG IVPB SCH (10:00)
[2018-02-17] MEDS ORDERED: Magnesium Sulfate 2 GM in Sodium Chloride 0.9% 100 ML IVPB SCH (10:00)
[2018-02-17] MEDS ORDERED: Potassium Phosphate 30 MMOL in Sodium Chloride 0.9% 500 ML IVPB SCH (10:00)
[2018-02-17] MEDS: 1/2 NS w/KCL 20 mEq 1,000 ML IV SCH ×2 (12:45→15:27)
[2018-02-17] MEDS ORDERED: Magnesium 2 GM/NS 0.9% 100 ML 2 GM in Premix Bag 1 BAG IVPB SCH (13:30)
--- NOTE | 2018-02-17 14:20 | PRG ---
DATE OF SERVICE: 02/17/2018 SERVICE: Pulmonary Medicine. INTERVAL HISTORY: The patient is doing great from a respiratory standpoint. He is much more alert t his morning. He is following commands, moving all 4 extremities. We placed him on spontaneous breat annalise trial. He did fantastic by the end of this thing. As such, we are going to move forward with e xtubation. He currently cannot provide me with any additional elements of the history because he is currently intubated. He is still a little somnolent, but he is much more responsive than previous. PHYSICAL EXAMINATION: VITAL SIGNS: Afebrile with T-max of 100.3, pulse 88, blood pressure 135/80, respirations 34, saturat ion 100% on 21% FiO2 and PEEP of 5. GENERAL: The patient is intubated. He is under the influence of some of the medications he previous ly took. HEENT: Normocephalic, atraumatic. Sclerae are white, conjunctivae pink. Oral and nasal mucosa is m oist without lesions. LUNGS: Decent air entry. There is no prolonged expiratory phase or wheezing present. HEART: Normal rate, regular. ABDOMEN: Soft, nontender, and nondistended. Bowel sounds are positive. MUSCULOSKELETAL: No cyanosis or clubbing. No pitting in the bilateral lower extremities. NEUROLOGIC: Nonfocal. LABORATORY DATA: WBC 13.6, hemoglobin 11.6, and platelets 119,000. This seems to be dropping off. INR 1.4. Potassium 3.1. Phosphorus 2.2, magnesium 1.8. Urinalysis is unremarkable. ASSESSMENT: 1. Respiratory failure secondary to encephalopathy. 2. Metabolic encephalopathy. 3. Suicide attempt, first by copyright clerk; when that was unsuccessful, he took multiple medications. 4. Left ventricular thrombus. PLAN: We will continue supportive care. When he meets criteria, extubation will be performed. Pota ssium, phosphorus, and magnesium will all be replaced today. Pulmonary or Critical Care will continu e to follow while the patient remains in this location. He will stay here for the next 24 hours. On ce he wakes up a touch more, hopefully we will be able to clear C-collar. CRITICAL CARE TIME: 30 minutes.
--- NOTE | 2018-02-17 19:25 | PDOC.PN ---
- Subjective Encounter Start Date: 02/17/18 Encounter Start Time: 12:00 -: non-verbal Patient seen and examined. Extubated. No overnight events - Objective Resuscitation Status: Resuscitation Status DNR:Do Not Resuscitate MAR Reviewed: Yes Vital Signs & Weight: Vital Signs (12 hours) Temp Pulse Resp Pulse Ox 02/17/18 16:00 98.8 F 02/17/18 12:00 98.9 F 97 02/17/18 09:12 90 32 H 99 02/17/18 08:00 99.5 F 92 32 H 100 Weight Admit Weight 194 lb 0.108 oz Weight 192 lb 10.944 oz Most Recent Monitor Data Heart Rate from ECG 80 NIBP 144/83 NIBP BP-Mean 101 Respiration from ECG 30 SpO2 93 I&O: 02/16/18 02/17/18 02/18/18 06:59 06:59 06:59 Intake Total 2597 1602 1068.3 Output Total 1475 2788 945 Balance 1122 -1186 123.3 Result Diagrams: 02/17/18 05:00 02/17/18 05:00 Additional Labs: Accuchecks 02/17/18 02/17/18 02/17/18 19:07 12:34 05:02 POC Glucose 77 88 102 02/17/18 00:42 POC Glucose 97 EKG Reviewed by me: Yes (Tele SR) Phys Exam - Physical Examination Constitutional: NAD Respiratory: no wheezing, no rhonchi Scat rales at bases, Symmetrical Cardiovascular: RRR, no rub no heaves/pulsations Gastrointestinal: soft, non-tender, no distention, positive bowel sounds Musculoskeletal: no edema Neuro/Psych - Not following commands, Disoriented Dx/Plan - Plan hill catheter, continue antibiotics, DVT proph w/lovenox, DVT proph w/SCDs IMPRESSION: 1. Suicidal drug overdose with tricyclic antidepressants, beta blockers, benzodiazepines, opioids, and Soma. 2. Acute hypoxic respiratory failure s/p mech Vent 3. Hypotensive shock secondary to #1 requiring pressors. Off pressors 4. s/p > 30 minutes of CPR. 5. Hypokalemia/Hypomagnesemia/Hypophosphatemia 6. Abnormal liver function tests, probably secondary to shock liver. 7. Prolonged QT. 8. Intracardiac thrombus - on anticoagulation 9. ?hypoxic brain injury PLAN: * Extubated * C-collar dced earlier today * Cont Ceftriaxone * Cont 1/2 NS with KCL * Critical care/Cardio following * AM labs * Replace electrolytes * Cont current meds as below Laboratory Tests 02/17/18 05:00 Phosphorus 2.2 L Magnesium 1.8 Albumin 2.5 L Review of Systems - Review of Systems Other: Cannot obtain due to current mentation - Medications/Allergies Allergies/Adverse Reactions: Allergies Allergy/AdvReac Type Severity Reaction Status Date / Time No Allergy Information Allergy Unverified 02/14/18 15:50 Available Medications: Current Medications Albuterol/Ipratropium (Duoneb) 3 ml NEB Q6H PRN PRN Reason: SOB &/or Wheezing Bisacodyl (Dulcolax) 10 mg [place] Q24H PRN PRN Reason: Constipation Calcium Carbonate (Tums) 1,000 mg PO Q4H PRN PRN Reason: Heartburn or Indigestion Dextrose/Water (Dextrose 50%) 25 gm SLOW IVP PRN PRN PRN Reason: Hypoglycemia Enoxaparin Sodium (Lovenox) 90 mg SC 0900,2100 [facility] Last Admin: 02/17/18 09:52 Dose: 90 mg Dextrose/Water (D5w) 1,000 mls @ 0 mls/hr IV .Q0M PRN; As Directed PRN Reason: Hypoglycemia Ceftriaxone Sodium 1 gm/ (Syringe 0.4 ml/ Sterile Water) 10 mls @ 120 mls/hr SLOW IVP 2100 [facility] Last Admin: 02/16/18 20:55 Dose: 10 mls Potassium Chloride/Sodium Chloride (1/2 Ns W/Kcl 20 Meq) 1,000 mls @ 75 mls/hr IV .[id number] [facility] Last Admin: 02/17/18 15:27 Dose: Not Given Insulin Human Regular (Humulin R) 0 units SC .MILD SLIDING SCALE PRN PRN Reason: Mild Correctional Scale Last Admin: 02/15/18 08:37 Dose: 2 unit Ccu Electrolyte (Replacement Protocol) 0 each FS PRN PRN PRN Reason: FOR ELECTROLYTE REPLACEMENT Ondansetron HCl (Zofran Odt) 4 mg PO Q6H PRN PRN Reason: Nausea/Vomiting Ondansetron HCl (Zofran) 4 mg IVP Q6H PRN PRN Reason: Nausea/Vomiting Thiamine HCl (Thiamine Hcl) 100 mg SLOW IVP Q24HR [facility] Last Admin: 02/16/18 20:50 Dose: 100 mg
[2018-02-17] MEDS: cefTRIAXone\\ROCEPHIN 1 GM, Syringe 0.4 ML in Sterile Water 9.6 ML SLOW IVP SCH (20:59)
[2018-02-17] MEDS: Thiamine HCl 200 MG/2 ML VIAL SLOW IVP SCH (22:00)
[2018-02-18] MEDS: 1/2 NS w/KCL 20 mEq 1,000 ML IV SCH (03:36)
[2018-02-18 05:34] LABS: INR-International Normal Ratio 1.1; Prothrombin Time 14.5 SEC (12.0-14.7)
[2018-02-18 05:42] LABS: Band 18 % (5-11); Hemoglobin 11.5 g/dL (14.0-18.0); Lymphocytes 13 % (21-51); MDiff Complete? YES; Mean Corpuscular HGB CONC 33.3 g/dL (32.0-36.0); Mean Corpuscular Hemoglobin 33.5 pg (27.0-31.0); Mean Platelet Volume 8.7 fL (7.4-10.4); Monocytes 4 % (0-10); Neutrophil 65 % (42-75); PLT Morphology Comment Appears Decreased; Platelet Count 118 thou/uL (130-400); RBC Distribution Width 13.1 % (11.5-14.5); Red Blood Cell (RBC) Count 3.44 mill/uL (4.70-6.10); White Blood Cell (WBC) Count 13.5 thou/uL (4.8-10.8)
[2018-02-18 05:49] LABS: Magnesium 2.1 mg/dL (1.6-2.6); Phosphorus 2.1 mg/dL (2.3-4.7)
[2018-02-18 06:14] LABS: Potassium 3.4 mmol/L (3.5-5.1)
[2018-02-18] MEDS: Enoxaparin Sodium 100 MG/ML SYRINGE SC SCH ×2 (10:00→20:49)
--- NOTE | 2018-02-18 11:42 | PRG ---
DATE OF SERVICE: 02/18/2018 SERVICE: Pulmonary Medicine. INTERVAL HISTORY: The patient is doing fine from a respiratory standpoint. He is breathing comforta sherrell. He is down to 2 liters nasal cannula. Otherwise, there has been no interval change to his cond ition. He denies any chest pain or shortness of breath. His mentation is slowly improving. PHYSICAL EXAMINATION: VITAL SIGNS: Afebrile, pulse 95, blood pressure 148/66, respirations 20, saturation 99% on 2 liters nasal cannula. GENERAL: The patient is awake, alert, in no apparent distress. LUNGS: Decent air entry with rhonchi and crackles both present. HEART: Normal rate and regular. ABDOMEN: Soft, nontender, nondistended. Bowel sounds are positive. MUSCULOSKELETAL: No cyanosis or clubbing. No pitting in the bilateral lower extremities. NEUROLOGIC: Nonfocal. LABORATORY DATA: WBC 13.5, hemoglobin 11.5, platelets 188,000. Band count is 18 and increasing. IN R 1.1. Phosphorus 2.1, potassium 3.4 and magnesium 2.1. ASSESSMENT: 1. Acute hypoxic respiratory failure. 2. Metabolic encephalopathy. 3. Suicide attempt. 4. Left ventricular thrombus. DISCUSSION AND PLAN: We will replace potassium and phosphorus. From my perspective, he is stable fo r transition out of the ICU. We will mobilize him and feed him. Pulmonary or Critical Care will con tinue to follow for the time being while he remains inhouse. If he develops fever, mccurdy culture, ches t x-ray should be performed. Currently he is on Rocephin.
[2018-02-18] MEDS ORDERED: Potassium Phosphate 30 MMOL in Sodium Chloride 0.9% 500 ML IVPB SCH (11:45)
[2018-02-18] MEDS ORDERED: Potassium Chloride 20 MEQ TAB PO SCH (11:45)
[2018-02-18] MEDS ORDERED: Loperamide HCl 2 MG CAP PO PRN (14:24)
[2018-02-18] MEDS ORDERED: Loperamide HCl 2 MG CAP PO SCH (14:30)
--- NOTE | 2018-02-18 20:43 | PDOC.PN ---
- Subjective Encounter Start Date: 02/18/18 Encounter Start Time: 11:30 Patient seen and examined. No new complaints. No overnight events. More awake - Objective Resuscitation Status: Resuscitation Status DNR:Do Not Resuscitate MAR Reviewed: Yes Vital Signs & Weight: Vital Signs (12 hours) Temp 02/18/18 16:00 98.7 F 02/18/18 13:00 98.6 F Weight Admit Weight 194 lb 0.108 oz Weight 3.012 oz Most Recent Monitor Data Heart Rate from ECG 76 NIBP 145/74 NIBP BP-Mean 93 Respiration from ECG 45 SpO2 94 I&O: 02/17/18 02/18/18 02/19/18 06:59 06:59 06:59 Intake Total 1602 2197.3 1390 Output Total 2788 1945 1345 Balance -1186 252.3 45 Result Diagrams: 02/19/18 04:34 02/19/18 04:34 Additional Labs: Accuchecks 02/18/18 02/18/18 02/17/18 18:09 07:46 23:33 POC Glucose 92 80 77 EKG Reviewed by me: Yes (Tele SR) Phys Exam - Physical Examination Constitutional: NAD Respiratory: no wheezing, no rales, no rhonchi Scat rales at bases Cardiovascular: RRR, no significant murmur, no rub no heaves/pulsations Gastrointestinal: soft, non-tender, no distention, positive bowel sounds Musculoskeletal: no edema Neurological: non-focal, moves all 4 limbs Psychiatric: A&O x 3 Dx/Plan - Plan DVT proph w/SCDs (on anticoag.) IMPRESSION: 1. Suicidal drug overdose 2. Acute hypoxic respiratory failure s/p [facility] Vent - extubated 3. Hypotensive shock secondary to #1 requiring pressors. Off pressors 4. s/p > 30 minutes of CPR. 5. Hypokalemia/Hypomagnesemia/Hypophosphatemia 6. Abnormal liver function tests, probably secondary to shock liver. 7. Prolonged QT. 8. Intracardiac thrombus - on anticoagulation 9. ?hypoxic brain injury PLAN: * Cont Ceftriaxone/Anticoag * Cont 1/2 NS with KCL * Critical care/Cardio following * AM labs * Cont current meds as below Review of Systems - Review of Systems Respiratory: negative: Cough, Dry, Shortness of Breath, Hemoptysis, SOB with Excertion, Pleuritic Pain, Sputum, Wheezing Cardiovascular: negative: chest pain, palpitations, orthopnea, paroxysmal nocturnal dyspnea, edema, light headedness - Medications/Allergies Allergies/Adverse Reactions: Allergies Allergy/AdvReac Type Severity Reaction Status Date / Time No Allergy Information Allergy Verified 02/19/18 06:35 Available Medications: Current Medications Albuterol/Ipratropium (Duoneb) 3 ml NEB Q6H PRN PRN Reason: SOB &/or Wheezing Bisacodyl (Dulcolax) 10 mg [place] Q24H PRN PRN Reason: Constipation Calcium Carbonate (Tums) 1,000 mg PO Q4H PRN PRN Reason: Heartburn or Indigestion Dextrose/Water (Dextrose 50%) 25 gm SLOW IVP PRN PRN PRN Reason: Hypoglycemia Enoxaparin Sodium (Lovenox) 90 mg SC 0900,2100 [facility] Last Admin: 02/18/18 10:00 Dose: 90 mg Dextrose/Water (D5w) 1,000 mls @ 0 mls/hr IV .Q0M PRN; As Directed PRN Reason: Hypoglycemia Ceftriaxone Sodium 1 gm/ (Syringe 0.4 ml/ Sterile Water) 10 mls @ 120 mls/hr SLOW IVP 2100 [facility] Last Admin: 02/17/18 20:59 Dose: 10 mls Insulin Human Regular (Humulin R) 0 units SC .MILD SLIDING SCALE PRN PRN Reason: Mild Correctional Scale Last Admin: 02/15/18 08:37 Dose: 2 unit Loperamide HCl (Imodium) 2 mg PO PRN PRN PRN Reason: Diarrhea/Loose Stools Ccu Electrolyte (Replacement Protocol) 0 each FS PRN PRN PRN Reason: FOR ELECTROLYTE REPLACEMENT Ondansetron HCl (Zofran Odt) 4 mg PO Q6H PRN PRN Reason: Nausea/Vomiting Ondansetron HCl (Zofran) 4 mg IVP Q6H PRN PRN Reason: Nausea/Vomiting Sodium Chloride (Flush - Normal Saline) 10 ml IVF Q12HR [facility] Sodium Chloride (Flush - Normal Saline) 10 ml IVF PRN PRN PRN Reason: Saline Flush
[2018-02-18] MEDS: cefTRIAXone\\ROCEPHIN 1 GM, Syringe 0.4 ML in Sterile Water 9.6 ML SLOW IVP SCH (20:52)
[2018-02-18] MEDS: Ondansetron HCl/PF 4 MG/2 ML Vial IVP PRN (23:00)
[2018-02-19] MEDS: Calcium Carbonate 500 MG ChewTAB PO PRN (01:07)
[2018-02-19 05:14] LABS: Band 3 % (5-11); Hemoglobin 10.8 g/dL (14.0-18.0); Lymphocytes 8 % (21-51); MDiff Complete? YES; Mean Corpuscular HGB CONC 33.2 g/dL (32.0-36.0); Mean Corpuscular Hemoglobin 33.4 pg (27.0-31.0); Mean Platelet Volume 8.2 fL (7.4-10.4); Monocytes 7 % (0-10); Neutrophil 82 % (42-75); Platelet Count 164 thou/uL (130-400); RBC Distribution Width 12.8 % (11.5-14.5); Red Blood Cell (RBC) Count 3.23 mill/uL (4.70-6.10); White Blood Cell (WBC) Count 14.1 thou/uL (4.8-10.8)
[2018-02-19 05:29] LABS: ALT (SGPT) 86 U/L (8-55); AST (SGOT) 35 U/L (5-34); Albumin 2.7 g/dL (3.5-5.0); Alkaline Phosphatase 184 U/L (40-150); Anion Gap 12 mmol/L (10-20); BUN (Urea Nitrogen) 9 mg/dL (8.9-20.6); Bilirubin, Total 1.4 mg/dL (0.2-1.2); Calc. Creatinine Clearance 0 mL/min (70-130); Calcium 8.1 mg/dL (7.8-10.44); Carbon Dioxide 21 mmol/L (22-29); Chloride 106 mmol/L (98-107); Estimated GFR-MDRD Greater than 90; Globulin 2.5 g/dL (2.4-3.5); Glucose 75 mg/dL (70-105); Phosphorus 2.1 mg/dL (2.3-4.7); Potassium 3.6 mmol/L (3.5-5.1); Protein, Total 5.2 g/dL (6.0-8.3); Sodium 135 mmol/L (136-145)
[2018-02-19] MEDS: Enoxaparin Sodium 100 MG/ML SYRINGE SC SCH ×2 (09:32→20:45)
[2018-02-19] MEDS: Ondansetron HCl/PF 4 MG/2 ML Vial IVP PRN (11:18)
[2018-02-19 13:42] VITALS: BMI 28.7
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
--- NOTE | 2018-02-19 19:46 | PRG ---
DATE OF SERVICE: 02/19/2018 SUBJECTIVE: Mr. Winter is amazingly awake and alert. PHYSICAL EXAMINATION: VITAL SIGNS: Blood pressure 133/73, pulse is in the 80s. LUNGS: Clear. CARDIAC: Normal S1, normal S2. ABDOMEN: Soft, nontender. EXTREMITIES: No edema. ASSESSMENT: 1. Status post cardiac arrest secondary to drug overdose. 2. What look like a thrombus in the right atrium on recent echocardiogram. The other possibility co uld be myxoma, but looked suspicious for a thrombus. PLAN: Repeat echo tomorrow. May need transesophageal echo as well.
[2018-02-19] MEDS: Nicotine 21 MG PATCH TOP SCH (20:45)
[2018-02-19] MEDS: cefTRIAXone\\ROCEPHIN 1 GM, Syringe 0.4 ML in Sterile Water 9.6 ML SLOW IVP SCH (21:05)
[2018-02-19] MEDS ORDERED: Dicyclomine 10 MG CAP PO PRN (22:56)
[2018-02-19] MEDS ORDERED: Loperamide HCl 2 MG CAP PO PRN (22:56)
--- NOTE | 2018-02-19 22:56 | PDOC.PN ---
- Subjective Encounter Start Date: 02/19/18 Encounter Start Time: 14:50 Patient seen and examined. No new complaints. No overnight events. Intermittent confusion per RN - Objective Resuscitation Status: Resuscitation Status DNR:Do Not Resuscitate MAR Reviewed: Yes Vital Signs & Weight: Vital Signs (12 hours) Temp Pulse Resp Pulse Ox 02/19/18 20:00 99.6 F 84 35 H 94 L 02/19/18 16:00 99.3 F 02/19/18 12:00 99.0 F Weight Admit Weight 194 lb 0.108 oz Weight 194 lb 0.108 oz Most Recent Monitor Data Heart Rate from ECG 82 NIBP 138/88 NIBP BP-Mean 98 Respiration from ECG 17 SpO2 94 I&O: 02/18/18 02/19/18 02/20/18 06:59 06:59 06:59 Intake Total 2197.3 2490 820 Output Total 1945 3575 3020 Balance 252.3 -2655 -2200 Result Diagrams: 02/20/18 04:40 02/20/18 04:40 Additional Labs: Accuchecks 02/19/18 02/19/18 02/19/18 21:10 17:03 11:15 POC Glucose 97 89 103 EKG Reviewed by me: Yes (Tele SR) Phys Exam - Physical Examination Constitutional: NAD (Anxious larissa) Respiratory: no wheezing, no rhonchi Cardiovascular: RRR, no rub Gastrointestinal: soft, non-tender Musculoskeletal: no edema Neurological: moves all 4 limbs Dx/Plan - Plan DVT proph w/lovenox, DVT proph w/SCDs IMPRESSION: 1. Suicidal drug overdose 2. Acute hypoxic [facility] failure [facility] - [facility] 3. Hypotensive shock secondary to #1 requiring pressors. Off pressors 4. s/p > 30 minutes of CPR. 5. Hypokalemia/Hypomagnesemia/Hypophosphatemia 6. Abnormal liver function tests, probably secondary to shock liver. 7. Prolonged QT on admission 8. Intracardiac thrombus - on anticoagulation 9. ?hypoxic brain injury PLAN: * Await medical bed * Sitter * [facility] consult when stable * Cont Atbx * On Anticoag * Critical care/Cardio following * AM labs * Cont current meds as below Review of Systems - Review of Systems Respiratory: negative: Cough, Dry, Shortness of Breath, Hemoptysis, SOB with Excertion, Pleuritic Pain, Sputum, Wheezing Cardiovascular: negative: chest pain, palpitations, orthopnea, paroxysmal nocturnal dyspnea, edema, light headedness Gastrointestinal: Abdominal Pain. negative: Nausea, Vomiting, Diarrhea, Constipation, Melena, Hematochezia - Medications/Allergies Allergies/Adverse Reactions: Allergies Allergy/AdvReac Type Severity Reaction Status Date / Time No Allergy Information Allergy Verified 02/19/18 06:35 Available Medications: Current Medications Acetaminophen (Tylenol) 650 mg PO Q4H PRN PRN Reason: Headache/Fever Albuterol/Ipratropium (Duoneb) 3 ml NEB Q6H PRN PRN Reason: SOB &/or Wheezing Bisacodyl (Dulcolax) 10 mg [place] Q24H PRN PRN Reason: Constipation Calcium Carbonate (Tums) 1,000 mg PO Q4H PRN PRN Reason: Heartburn or Indigestion Last Admin: 02/19/18 01:07 Dose: 1,000 mg Dextrose/Water (Dextrose 50%) 25 gm SLOW IVP PRN PRN PRN Reason: Hypoglycemia Enoxaparin Sodium (Lovenox) 90 mg SC 0900,2100 [facility] Last Admin: 02/19/18 20:45 Dose: 90 mg Dextrose/Water (D5w) 1,000 mls @ 0 mls/hr IV .Q0M PRN; As Directed PRN Reason: Hypoglycemia Ceftriaxone Sodium 1 gm/ (Syringe 0.4 ml/ Sterile Water) 10 mls @ 120 mls/hr SLOW IVP 2100 [facility] Last Admin: 02/19/18 21:05 Dose: 10 mls Insulin Human Regular (Humulin R) 0 units SC .MILD SLIDING SCALE PRN PRN Reason: Mild Correctional Scale Last Admin: 02/15/18 08:37 Dose: 2 unit Loperamide HCl (Imodium) 2 mg PO PRN PRN PRN Reason: Diarrhea/Loose Stools Nicotine (Nicoderm Patch) 21 mg TOP Q24HR [facility] Last Admin: 02/19/18 20:45 Dose: 21 mg Ccu Electrolyte (Replacement Protocol) 0 each FS PRN PRN PRN Reason: FOR ELECTROLYTE REPLACEMENT Ondansetron HCl (Zofran Odt) 4 mg PO Q6H PRN PRN Reason: Nausea/Vomiting Ondansetron HCl (Zofran) 4 mg IVP Q6H PRN PRN Reason: Nausea/Vomiting Last Admin: 02/19/18 11:18 Dose: 4 mg Sodium Chloride (Flush - Normal Saline) 10 ml IVF Q12HR [facility] Last Admin: 02/19/18 20:45 Dose: 10 ml Sodium Chloride (Flush - Normal Saline) 10 ml IVF PRN PRN PRN Reason: Saline Flush
[2018-02-19] MEDS: Ondansetron ODT 4 MG TAB PO PRN (23:20)
[2018-02-20] MEDS: Acetaminophen 325 MG TAB PO PRN ×2 (00:30→18:36)
[2018-02-20 06:12] LABS: Band 10 % (5-11); Eosinophils 1 % (0-10); Hemoglobin 10.7 g/dL (14.0-18.0); Lymphocytes 18 % (21-51); MDiff Complete? YES; Mean Corpuscular HGB CONC 32.6 g/dL (32.0-36.0); Mean Platelet Volume 8.9 fL (7.4-10.4); Monocytes 7 % (0-10); Neutrophil 64 % (42-75); Platelet Count 171 thou/uL (130-400); Red Blood Cell (RBC) Count 3.25 mill/uL (4.70-6.10); White Blood Cell (WBC) Count 9.5 thou/uL (4.8-10.8)
[2018-02-20 06:18] LABS: ALT (SGPT) 86 U/L (8-55); AST (SGOT) 85 U/L (5-34); Albumin 2.7 g/dL (3.5-5.0); Alkaline Phosphatase 227 U/L (40-150); Anion Gap 15 mmol/L (10-20); BUN (Urea Nitrogen) 6 mg/dL (8.9-20.6); Bilirubin, Total 1.6 mg/dL (0.2-1.2); Calc. Creatinine Clearance 177 mL/min (70-130); Calcium 8.2 mg/dL (7.8-10.44); Carbon Dioxide 24 mmol/L (22-29); Chloride 103 mmol/L (98-107); Estimated GFR-MDRD Greater than 90; Globulin 3.2 g/dL (2.4-3.5); Glucose 76 mg/dL (70-105); Phosphorus 2.6 mg/dL (2.3-4.7); Potassium 3.8 mmol/L (3.5-5.1); Protein, Total 5.9 g/dL (6.0-8.3); Sodium 138 mmol/L (136-145)
[2018-02-20] MEDS: Enoxaparin Sodium 100 MG/ML SYRINGE SC SCH ×2 (08:15→21:56)
--- NOTE | 2018-02-20 17:36 | RAD ---
CHEST ONE VIEW 02/20/18 HISTORY: Fever. COMPARISON: Chest radiograph 02/20/18. FINDINGS: Small effusions. Abnormal air space opacities in upper lobes. Also right middle and lingular air spac e opacities. No pneumothorax. IMPRESSION: 1. Worsening opacities throughout the lungs. Worsening upper lobes from the comparison examinati on. Findings are concerning for pneumonia. Followup recommended. 2. Interval removal of the enteric, central venous catheter, and endotracheal tubes. POS: C
[2018-02-20] MEDS: Ondansetron HCl/PF 4 MG/2 ML Vial IVP PRN (17:42)
[2018-02-20] MEDS ORDERED: Cefepime 2 GM in Sodium Chloride 0.9% 100 ML IVPB SCH (21:00)
[2018-02-20] MEDS: Cefepime 2 GM, Syringe 2.5 ML in Sodium Chloride 0.9% 10 ML SLOW IVP SCH (21:55)
[2018-02-20] MEDS: Nicotine 21 MG PATCH TOP SCH (21:56)
--- NOTE | 2018-02-20 22:45 | PDOC.PN ---
- Subjective Encounter Start Date: 02/20/18 Encounter Start Time: 11:00 Patient seen and examined. No new complaints. No overnight events. Intermittent confusion - Objective Resuscitation Status: Resuscitation Status DNR:Do Not Resuscitate MAR Reviewed: Yes Vital Signs & Weight: Vital Signs (12 hours) Temp Pulse BP Pulse Ox 02/20/18 20:00 99.9 F H 02/20/18 16:00 101.2 F H 02/20/18 11:30 98 141/82 H 83 L 02/20/18 11:00 99.4 F Weight Admit Weight 194 lb 0.108 oz Weight 194 lb 0.108 oz Most Recent Monitor Data Heart Rate from ECG 64 NIBP 131/70 NIBP BP-Mean 79 Respiration from ECG 32 SpO2 88 I&O: 02/19/18 02/20/18 02/21/18 06:59 06:59 06:59 Intake Total 2490 1300 1350 Output Total 3701 7988 5558 [facility]6783 -5599 -3185 Result Diagrams: 02/20/18 04:40 02/20/18 04:40 Additional Labs: Accuchecks 02/20/18 02/20/18 02/20/18 22:06 16:38 11:24 POC Glucose 110 88 89 02/20/18 06:17 POC Glucose 99 EKG Reviewed by me: Yes (Tele SR) Phys Exam - Physical Examination Constitutional: NAD Respiratory: no wheezing, no rhonchi Cardiovascular: RRR, no rub Gastrointestinal: soft, non-tender, positive bowel sounds Musculoskeletal: no edema Neurological: moves all 4 limbs Dx/Plan - Plan DVT proph w/SCDs IMPRESSION: 1. Suicidal drug overdose 2. Acute hypoxic respiratory failure s/p [facility] Vent - extubated 3. Hypotensive shock secondary to #1 requiring pressors. Off pressors 4. s/p > 30 minutes of CPR. 5. Hypokalemia/Hypomagnesemia/Hypophosphatemia 6. Abnormal liver function tests, probably secondary to shock liver. 7. Prolonged QT on admission 8. Intracardiac thrombus - on anticoagulation - Repeat Echo today 9. ?hypoxic brain injury PLAN: * Cont Ceftriaxone * Await medical bed * Sitter * MR consult when stable * On Anticoag for LV thrombus * Critical care/Cardio following * AM labs * Cont current meds as below Review of Systems - Review of Systems Respiratory: negative: Cough, Dry, Shortness of Breath, Hemoptysis, SOB with Excertion, Pleuritic Pain, Sputum, Wheezing Cardiovascular: negative: chest pain, palpitations, orthopnea, paroxysmal nocturnal dyspnea, edema, light headedness, other - Medications/Allergies Allergies/Adverse Reactions: Allergies Allergy/AdvReac Type Severity Reaction Status Date / Time No Allergy Information Allergy Verified 02/19/18 06:35 Available Medications: Current Medications Acetaminophen (Tylenol) 650 mg PO Q4H PRN PRN Reason: Headache/Fever Last Admin: 02/20/18 18:36 Dose: 650 mg Albuterol/Ipratropium (Duoneb) 3 ml NEB Q6H PRN PRN Reason: SOB &/or Wheezing Bisacodyl (Dulcolax) 10 mg AL Q24H PRN PRN Reason: Constipation Calcium Carbonate (Tums) 1,000 mg PO Q4H PRN PRN Reason: Heartburn or Indigestion Last Admin: 02/19/18 01:07 Dose: 1,000 mg Dextrose/Water (Dextrose 50%) 25 gm SLOW IVP PRN PRN PRN Reason: Hypoglycemia Dicyclomine HCl (Bentyl) 10 mg PO QID PRN PRN Reason: GI spasm Enoxaparin Sodium (Lovenox) 90 mg SC [id number],2099 [facility] Last Admin: 02/20/18 21:56 Dose: 90 mg Dextrose/Water (D5w) 1,000 mls @ 0 mls/hr IV .Q0M PRN; As Directed PRN Reason: Hypoglycemia Cefepime HCl 2 gm/ Syringe 2.5 (ml/ Sodium Chloride) 12.5 mls @ 150 mls/hr SLOW IVP 899,2099 [facility] Last Admin: 02/20/18 21:55 Dose: 12.5 mls Insulin Human Regular (Humulin R) 0 units SC .MILD SLIDING SCALE PRN PRN Reason: Mild Correctional Scale Last Admin: 02/15/18 08:37 Dose: 2 unit Loperamide HCl (Imodium) 2 mg PO PRN PRN PRN Reason: Diarrhea/Loose Stools Nicotine (Nicoderm Patch) 21 mg TOP Q24HR [facility] Last Admin: 02/20/18 21:56 Dose: 21 mg Ccu Electrolyte (Replacement Protocol) 0 each FS PRN PRN PRN Reason: FOR ELECTROLYTE REPLACEMENT Ondansetron HCl (Zofran Odt) 4 mg PO Q6H PRN PRN Reason: Nausea/Vomiting Last Admin: 02/19/18 23:20 Dose: 4 mg Ondansetron HCl (Zofran) 4 mg IVP Q6H PRN PRN Reason: Nausea/Vomiting Last Admin: 02/20/18 17:42 Dose: 4 mg Sodium Chloride (Flush - Normal Saline) 10 ml IVF Q12HR ALTA Last Admin: 02/20/18 21:57 Dose: 10 ml Sodium Chloride (Flush - Normal Saline) 10 ml IVF PRN PRN PRN Reason: Saline Flush
[2018-02-21] MEDS: Acetaminophen 325 MG TAB PO PRN ×2 (00:12→23:55)
[2018-02-21] MEDS: Ondansetron HCl/PF 4 MG/2 ML Vial IVP PRN (04:20)
--- NOTE | 2018-02-21 04:36 | CON ---
DATE OF CONSULTATION: 02/20/2018 HISTORY OF PRESENT ILLNESS: Mr. Winter has no complaints today. He said he wanted to go to his dad's house after his discharge. His family has already gone to his house and picked up belongings, so he can stay with them. PHYSICAL EXAMINATION: VITAL SIGNS: His heart rate is in the 70s. Blood pressure this evening is 146/ 83, respiratory rate in the 20s. Oximetry is on room air now in the low 90s. HEAD AND NECK: Unremarkable. LUNGS: Clear. HEART: Regular rhythm. ABDOMEN: Soft. EXTREMITIES: Without clubbing, cyanosis, or edema. NEUROLOGIC: Nonfocal. He became febrile this afternoon, so blood cultures and a chest x-ray was done. He has upper lobe infiltrates and chest x-ray I suspect these are aspiration mediated. He is already on Rocephin. We will discontinue his Rocephin and start him on Maxipime. I do not really see any clear-cut indication, put him on vancomycin at this point. We will observe him clinically and see how he does with this. I suspect this is a delayed development of an infectious process associated with his field. CPR and CODE. An echocardiogram was repeated today to reevaluate the density seen in his atrium. We are awaiting these results. Still feel once he is medically stable, he would benefit from inpatient hospitalization given the severity of his depression and extreme measures he took toto try to end his life, he hand off for the police followed by a massive ingestion of sedative drugs. This is not in my opinion a gesture and cannot be assumed to be a benign event, especially with a past history of suicidal ideation. Critical care time was 30 minutes. ZEE
[2018-02-21 04:42] LABS: Band 1 % (5-11); Hemoglobin 11.2 g/dL (14.0-18.0); Lymphocytes 20 % (21-51); MDiff Complete? YES; Mean Corpuscular HGB CONC 33.1 g/dL (32.0-36.0); Mean Corpuscular Hemoglobin 33.2 pg (27.0-31.0); Mean Platelet Volume 7.4 fL (7.4-10.4); Monocytes 8 % (0-10); Neutrophil 71 % (42-75); Platelet Count 266 thou/uL (130-400); RBC Distribution Width 12.8 % (11.5-14.5); Red Blood Cell (RBC) Count 3.37 mill/uL (4.70-6.10); White Blood Cell (WBC) Count 10.7 thou/uL (4.8-10.8)
[2018-02-21 04:44] LABS: ALT (SGPT) 68 U/L (8-55); AST (SGOT) 57 U/L (5-34); Albumin 2.8 g/dL (3.5-5.0); Alkaline Phosphatase 205 U/L (40-150); Anion Gap 10 mmol/L (10-20); BUN (Urea Nitrogen) 7 mg/dL (8.9-20.6); Bilirubin, Total 1.1 mg/dL (0.2-1.2); Calc. Creatinine Clearance 180 mL/min (70-130); Calcium 8.2 mg/dL (7.8-10.44); Carbon Dioxide 27 mmol/L (22-29); Chloride 103 mmol/L (98-107); Estimated GFR-MDRD Greater than 90; Globulin 2.8 g/dL (2.4-3.5); Glucose 92 mg/dL (70-105); Phosphorus 2.3 mg/dL (2.3-4.7); Protein, Total 5.6 g/dL (6.0-8.3); Sodium 137 mmol/L (136-145)
[2018-02-21] MEDS: Enoxaparin Sodium 100 MG/ML SYRINGE SC SCH (09:01)
[2018-02-21] MEDS: Cefepime 2 GM, Syringe 2.5 ML in Sodium Chloride 0.9% 10 ML SLOW IVP SCH ×2 (09:01→20:46)
--- NOTE | 2018-02-21 10:21 | PRG ---
DATE OF SERVICE: 02/21/2018 SUBJECTIVE: Mr. Winter is doing well. He is awake and alert. OBJECTIVE: VITAL SIGNS: Blood pressure 125/74 and pulse 80. LUNGS: Clear. CARDIAC: Normal S1 and normal S2. ABDOMEN: Soft and nontender. EXTREMITIES: No edema. Echocardiogram yesterday revealed that there is no evidence of any thrombus in the right atrium that was present on the echo last week. ASSESSMENT: 1. Status post cardiac arrest related to drug overdose. 2. Right atrial thrombus, resolved. PLAN: 1. We will stop Lovenox. 2. We would recommend he stay on Eliquis for a couple of more months.
--- NOTE | 2018-02-21 15:09 | EKG ---
Test Reason : Blood Pressure : / mmHG Vent. Rate : 053 BPM Atrial Rate : 053 BPM P-R Int : 188 ms QRS Dur : 116 ms QT Int : 642 ms P-R-T Axes : 063 135 063 degrees QTc Int : 602 ms Sinus bradycardia Low voltage QRS Lateral infarct , age undetermined Prolonged QT Abnormal ECG Confirmed by DANIE STATON D.O. ([id number]), video news editor TRACY ATKINS ([id number]) on 02/21/2018 3:07:59 PM Referred By: Confirmed By:DANIE STATON D.O.
--- NOTE | 2018-02-21 15:09 | EKG ---
Test Reason : Blood Pressure : / mmHG Vent. Rate : 049 BPM Atrial Rate : 049 BPM P-R Int : 208 ms QRS Dur : 122 ms QT Int : 326 ms P-R-T Axes : 066 125 018 degrees QTc Int : 294 ms Sinus bradycardia Right axis deviation Non-specific intra-ventricular conduction delay Nonspecific ST and T wave abnormality Abnormal ECG Confirmed by DANIE STATON D.O. ([id number]), commissioning editor TRACY ATKINS ([id number]) on 02/21/2018 3:08:01 PM Referred By: Confirmed By:DANIE STATON D.O.
--- NOTE | 2018-02-21 15:09 | EKG ---
Test Reason : Blood Pressure : / mmHG Vent. Rate : 047 BPM Atrial Rate : 047 BPM P-R Int : 212 ms QRS Dur : 122 ms QT Int : 362 ms P-R-T Axes : 061 121 025 degrees QTc Int : 320 ms Sinus bradycardia with 1st degree A-V block Right axis deviation Non-specific intra-ventricular conduction delay Nonspecific T wave abnormality Abnormal ECG Confirmed by DANIE STATON D.O. ([id number]), order editor TRACY ATKINS ([id number]) on 02/21/2018 3:08:00 PM Referred By: Confirmed By:DANIE STATON D.O.
--- NOTE | 2018-02-21 15:10 | PDOC.PN ---
- Subjective Encounter Start Date: 02/21/18 Encounter Start Time: 12:00 Gerardo is seen today, alert and oriented. He continuos to have Upper lobe Infiltrate, but is stbale on Room air now. - Objective Resuscitation Status: Resuscitation Status DNR:Do Not Resuscitate MAR Reviewed: Yes Vital Signs & Weight: Vital Signs (12 hours) Temp Pulse Resp BP Pulse Ox 02/21/18 12:53 98.7 F 65 16 93 L 02/21/18 12:07 98.7 F 65 16 130/79 93 L 02/21/18 08:00 97.5 F L 69 30 H 02/21/18 04:00 98.6 F Weight Admit Weight 194 lb 0.108 oz Weight 194 lb 0.108 oz Most Recent Monitor Data Heart Rate from ECG 68 NIBP 125/71 NIBP BP-Mean 84 Respiration from ECG 35 SpO2 93 I&O: 02/20/18 02/21/18 02/22/18 06:59 06:59 06:59 Intake Total 1300 1590 200 Output Total 4620 4900 500 Balance -3320 -3310 -300 Result Diagrams: 02/21/18 04:25 02/21/18 04:25 Additional Labs: Accuchecks 02/21/18 02/21/18 02/20/18 11:30 06:11 22:06 POC Glucose 88 103 110 02/20/18 16:38 POC Glucose 88 Radiology Reviewed by me: Yes Phys Exam - Physical Examination HEENT: PERRLA, moist MMs Neck: no nodes, no JVD Respiratory: no wheezing, no rales Cardiovascular: RRR, no significant murmur Gastrointestinal: soft, non-tender Musculoskeletal: no edema, pulses present Neurological: non-focal, normal sensation Lymphatic: no nodes Psychiatric: normal affect Dx/Plan (1) Acute respiratory failure with hypoxia Code(s): J96.01 - ACUTE RESPIRATORY FAILURE WITH HYPOXIA Status: Acute Comment: Resolved now, on room air, But risk of decpompansation diu to aspiration pneumoniaitis. will continu to Monitor. (2) Septic shock Code(s): A41.9 - SEPSIS, UNSPECIFIED ORGANISM; R65.21 - SEVERE SEPSIS WITH SEPTIC SHOCK Status: Acute Comment: resolved. (3) Atrial thrombus Status: Acute Comment: Cardiology doi Echo was normal, recommeded Eliquis for 3-6 months (4) Suicidal overdose Code(s): T50.902A - POISONING BY UNSP DRUG/MEDS/BIOL SUBST, SELF-HARM, INIT Status: Acute Comment: Will need Inpatient Hospitalization for Depression/ Substance abuse disoirder (5) Pneumonia, aspiration Code(s): J69.0 - PNEUMONITIS DUE TO INHALATION OF FOOD AND VOMIT Status: Acute Qualifiers: Lung location: unspecified part of lung Comment: Will continue with Rocephin and meropenam, continue with NC as needed. Nebs prn. - Plan cont current plan of care, continue antibiotics, PT/OT, social science professor, respiratory therapy, incentive spirometry, out of bed/ambulate, DVT proph w/ lovenox * . - Discharge Day Encounter end time: 12:35 Review of Systems - Review of Systems Constitutional: weakness Eyes: negative: Pain, Vision Change, Conjunctivae Inflammation, Eyelid Inflammation, Redness, Other ENT: negative: Ear Pain, Ear Discharge, Nose Pain, Nose Discharge, Nose Congestion, Mouth Pain, Mouth Swelling, Throat Pain, Throat Swelling, Other Respiratory: negative: Cough, Dry, Shortness of Breath, Hemoptysis, SOB with Excertion, Pleuritic Pain, Sputum, Wheezing Cardiovascular: negative: chest pain, palpitations, orthopnea, paroxysmal nocturnal dyspnea, edema, light headedness, other Gastrointestinal: negative: Nausea, Vomiting, Abdominal Pain, Diarrhea, Constipation, Melena, Hematochezia, Other - Medications/Allergies Allergies/Adverse Reactions: Allergies Allergy/AdvReac Type Severity Reaction Status Date / Time No Allergy Information Allergy Verified 02/19/18 06:35 Available Medications: Current Medications Acetaminophen (Tylenol) 650 mg PO Q4H PRN PRN Reason: Headache/Fever Last Admin: 02/21/18 00:12 Dose: 650 mg Albuterol/Ipratropium (Duoneb) 3 ml NEB Q6H PRN PRN Reason: SOB &/or Wheezing Apixaban (Eliquis) 5 mg PO BID ALTA Bisacodyl (Dulcolax) 10 mg VT Q24H PRN PRN Reason: Constipation Calcium Carbonate (Tums) 1,000 mg PO Q4H PRN PRN Reason: Heartburn or Indigestion Last Admin: 02/19/18 01:07 Dose: 1,000 mg Dextrose/Water (Dextrose 50%) 25 gm SLOW IVP PRN PRN PRN Reason: Hypoglycemia Dicyclomine HCl (Bentyl) 10 mg PO QID PRN PRN Reason: GI spasm Dextrose/Water (D5w) 1,000 mls @ 0 mls/hr IV .Q0M PRN; As Directed PRN Reason: Hypoglycemia Cefepime HCl 2 gm/ Syringe 2.5 (ml/ Sodium Chloride) 12.5 mls @ 150 mls/hr SLOW IVP 0900,2100 [facility] Last Admin: 02/21/18 09:01 Dose: 12.5 mls Insulin Human Regular (Humulin R) 0 units SC .MILD SLIDING SCALE PRN PRN Reason: Mild Correctional Scale Last Admin: 02/15/18 08:37 Dose: 2 unit Loperamide HCl (Imodium) 2 mg PO PRN PRN PRN Reason: Diarrhea/Loose Stools Last Admin: 02/21/18 02:32 Dose: 2 mg Nicotine (Nicoderm Patch) 21 mg TOP Q24HR [facility] Last Admin: 02/20/18 21:56 Dose: 21 mg Ondansetron HCl (Zofran Odt) 4 mg PO Q6H PRN PRN Reason: Nausea/Vomiting Last Admin: 02/19/18 23:20 Dose: 4 mg Ondansetron HCl (Zofran) 4 mg IVP Q6H PRN PRN Reason: Nausea/Vomiting Last Admin: 02/21/18 04:20 Dose: 4 mg Sodium Chloride (Flush - Normal Saline) 10 ml IVF Q12HR ALTA Last Admin: 02/21/18 09:01 Dose: 10 ml Sodium Chloride (Flush - Normal Saline) 10 ml IVF PRN PRN PRN Reason: Saline Flush Last Admin: 02/21/18 09:02 Dose: 10 ml
--- NOTE | 2018-02-21 16:23 | PRG ---
DATE OF SERVICE: 02/21/2018 SUBJECTIVE: Maggy is in no distress. PHYSICAL EXAMINATION: VITAL SIGNS: He is afebrile, heart rate 65, respiratory rate 16. Last temperature elevation was at 4 yesterday at 101.2. He has been afebrile since. LUNGS: Clear. HEART: Regular rhythm. LABORATORY DATA: Blood cultures remain negative. They were done yesterday afternoon. IMPRESSION: 1. Pneumonia, likely aspiration mediated associated with his out of hospital arrest. 2. Status post suicidal attempt by different methods. 3. History of depression. 4. Anemia that is stable; hemoglobin is 11.2 today and 10.7 yesterday. PLAN: Discontinue IV antibiotics after the last third dose tonight. Start him on p.o. antimicrobial therapy in the morning. Continue to increase his activity level. If he is stable overnight, he cou ld be considered stable for an [facility] evaluation in my opinion.
[2018-02-21] MEDS: Ondansetron ODT 4 MG TAB PO PRN (18:29)
[2018-02-21] MEDS: Amoxicillin/Potassium Clav 875 MG TAB PO SCH (20:46)
[2018-02-21] MEDS: Apixaban 5 MG TAB PO SCH (20:46)
[2018-02-21] MEDS: Nicotine 21 MG PATCH TOP SCH (20:48)
[2018-02-22 05:09] LABS: Band 1 % (5-11); Eosinophils 2 % (0-10); Hemoglobin 12.7 g/dL (14.0-18.0); Lymphocytes 24 % (21-51); MDiff Complete? YES; Mean Corpuscular HGB CONC 33.3 g/dL (32.0-36.0); Mean Corpuscular Hemoglobin 32.7 pg (27.0-31.0); Mean Corpuscular Volume 98.1 fl (80.0-94.0); Mean Platelet Volume 7.1 fL (7.4-10.4); Monocytes 6 % (0-10); Neutrophil 67 % (42-75); PLT Morphology Comment Appears Adequate; Platelet Count 296 thou/uL (130-400); RBC Distribution Width 12.9 % (11.5-14.5); Red Blood Cell (RBC) Count 3.87 mill/uL (4.70-6.10); White Blood Cell (WBC) Count 10.5 thou/uL (4.8-10.8)
[2018-02-22 05:24] LABS: ALT (SGPT) 53 U/L (8-55); AST (SGOT) 31 U/L (5-34); Albumin 2.9 g/dL (3.5-5.0); Alkaline Phosphatase 189 U/L (40-150); Anion Gap 10 mmol/L (10-20); BUN (Urea Nitrogen) 7 mg/dL (8.9-20.6); Bilirubin, Total 0.6 mg/dL (0.2-1.2); Calc. Creatinine Clearance 188 mL/min (70-130); Calcium 8.5 mg/dL (7.8-10.44); Carbon Dioxide 28 mmol/L (22-29); Chloride 105 mmol/L (98-107); Estimated GFR-MDRD Greater than 90; Glucose 96 mg/dL (70-105); Phosphorus 3.4 mg/dL (2.3-4.7); Potassium 3.3 mmol/L (3.5-5.1); Protein, Total 5.9 g/dL (6.0-8.3); Sodium 140 mmol/L (136-145)
[2018-02-22] MEDS: Apixaban 5 MG TAB PO SCH (08:17)
[2018-02-22] MEDS: Amoxicillin/Potassium Clav 875 MG TAB PO SCH (10:38)
--- NOTE | 2018-02-22 17:37 | PDOC.PN ---
- Subjective Encounter Start Date: 02/22/18 Encounter Start Time: 17:35 Mr. Winter was seen today in follow-up. He says he has a little pain in his lower chest when he breathes in, but otherwise ok. - Objective Resuscitation Status: Resuscitation Status DNR:Do Not Resuscitate MAR Reviewed: Yes Vital Signs & Weight: Vital Signs (12 hours) Temp Pulse Resp BP Pulse Ox 02/22/18 08:15 98.2 F 59 L 16 93 L 02/22/18 08:00 98.2 F 59 L 32 H 117/78 93 L Weight Admit Weight 194 lb 0.108 oz Weight 194 lb 0.108 oz Most Recent Monitor Data Heart Rate from ECG 68 NIBP 125/71 NIBP BP-Mean 84 Respiration from ECG 35 SpO2 93 I&O: 02/21/18 02/22/18 02/23/18 06:59 06:59 06:59 Intake Total 1590 600 Output Total 4900 500 Balance -3310 100 Result Diagrams: 02/22/18 04:30 02/22/18 04:30 Phys Exam - Physical Examination HEENT: PERRLA Respiratory: no wheezing, no rales, no rhonchi, clear to auscultation bilateral Cardiovascular: RRR, no significant murmur, no rub Gastrointestinal: soft, non-tender, positive bowel sounds Musculoskeletal: no edema Dx/Plan (1) Acute respiratory failure with hypoxia Code(s): J96.01 - ACUTE RESPIRATORY FAILURE WITH HYPOXIA Status: Acute Comment: Resolved now, on room air, But risk of decpompansation diu to aspiration pneumoniaitis. will continu to Monitor. (2) Pneumonia, aspiration Code(s): J69.0 - PNEUMONITIS DUE TO INHALATION OF FOOD AND VOMIT Status: Acute Qualifiers: Lung location: unspecified part of lung Comment: Will continue with Rocephin and meropenam, continue with NC as needed. Nebs prn. (3) Suicidal overdose Code(s): T50.902A - POISONING BY UNSP DRUG/MEDS/BIOL SUBST, SELF-HARM, INIT Status: Acute Comment: Will need Inpatient Hospitalization for Depression/ Substance abuse disoirder - Plan * Aspiration Pneumonia-much improved- he is now on oral medications, and he has good oxygen saturations on room air. * He is medically stable for discharge * Suicidal ideation- arrangements for transfer to [facility] are in progress.
[2018-02-22] MEDS: Calcium Carbonate 500 MG ChewTAB PO PRN (18:27)
[2018-02-22 19:31] VITALS: BP 125/78; TEMP 98
--- NOTE | 2018-02-22 22:17 | PRG ---
DATE OF SERVICE: 02/22/2018 SUBJECTIVE: Shaun Winter is doing well. He has had no fever. He denies coughing, denies shortne ss of breath. OBJECTIVE: VITAL SIGNS: Heart rates in the 50s, temperature is 98, respiratory rate is in the teens, oximetry i s up to 96 on room air, and blood pressure 125/78. LUNGS: Clear. IMPRESSION: 1. Aspiration pneumonia. 2. Status post drug overdose. 3. Chest discomfort secondary to cardiopulmonary resuscitation. 4. Status post cardiorespiratory arrest after his overdose. 5. Severe depression ongoing that he should be evaluated by [facility] and ideally should be kept in an in patient setting for depression given the severity of his depression and what he has done. We will sign off. He should have another 10 days of antibiotics at discharge.
--- NOTE | 2018-02-23 05:12 | DIS ---
DATE OF ADMISSION: 02/14/2018 DATE OF DISCHARGE: 02/22/2018 PRIMARY CARE PHYSICIAN: Sae Head MD DISCHARGE DISPOSITION: [facility]. DISCHARGE DIAGNOSES: 1. Cardiac arrest secondary to suicide attempt. 2. Aspiration pneumonia. 3. Depression. 4. Right ventricular thrombus. DISCHARGE MEDICATIONS: Include Augmentin 875 mg twice a day for 6 additional days, NicoDerm patch 21 mg daily, DuoNeb q.6 hours as needed, Bentyl 10 mg q.i.d. as needed, Tums 1000 mg q.4 hours as neede d, Eliquis 5 mg twice a day, Tylenol 650 mg q.4 hours as needed. PROCEDURES DONE DURING ADMISSION: The patient had an echocardiogram in which there was a large mass in the right atrium which was suspected to be a mobile thrombus. The ejection fraction was estimated at 55-60%. Patient had a repeat echo on 02/20 and showed an ejection fraction of 60-65%. The previ ous identified mass in the right atrium thought to be a thrombus was no longer evident. Code status was noted to be DNR. ALLERGIES: There was no information available, so no known drug allergies. HOSPITAL COURSE: Mr. Wniter is a 47-year-old gentleman who was brought to the emergency room after he apparently tried to have a stand off with some police officers at the police department in order t o try to attempt suicide by coping machine operator. This was successful and that he lost himself in his home and drank alcohol and took Valium, morphine, and Soma as well as possibly Elavil. He was ultimately brought to the hospital and admitted. He required intubation and was admitted to the ICU and eventually was ab le to be extubated. There was initial concerns for anoxic brain injury and the patient's code status was changed to DNR; however, the patient was able to be successfully extubated and actually returned back to his baseline level of functioning and was completely lucid by the time of discharge. He did , however, suffer aspiration pneumonia during this event and was placed on IV antibiotics for this. Also, it was found during his evaluation that he had a right atrial thrombus. He was seen by cardiol alaina for this and was placed on Eliquis. A repeat echo showed resolution of the thrombus, but Dr. Gian johnson recommended continuing anticoagulation for another couple of months as a precaution. The patient , once stabilized, was able to be discharged to the inpatient psychiatric unit at [facility] due to suicidal ideation and this was done on 02/22/2018. At the time of discharge, again the patient was ambulatory. His oxygen saturations were between 92% and 93% on room air. He was tolerating a solid diet and had virtually no complaints. Also, he had not been on any narcotic medication in the past 7 days since the time of his admission.
--- NOTE | 2018-02-28 22:46 | EKG ---
Test Reason : Blood Pressure : / mmHG Vent. Rate : 058 BPM Atrial Rate : 058 BPM P-R Int : 178 ms QRS Dur : 102 ms QT Int : 636 ms P-R-T Axes : 064 074 064 degrees QTc Int : 624 ms Sinus bradycardia Nonspecific T wave abnormality Prolonged QT Abnormal ECG Confirmed by Mira SENA ([id number]) on 02/28/2018 10:46:07 PM Referred By: MAL Confirmed By:Mira SENA
== END 2018-02-22 21:52 | DRG 917 ==
LOC: ERS 15:38 → CCU 16:30 → T4-B 02-21 11:57
PROVIDERS: ADMIT Internal Medicine; ATTEND Internal Medicine
PROC: 5A1945Z Respiratory Ventilation, 24-96 Consecutive Hours (ICD-10-PCS; principal; 2018-02-14)
DX: I46.9 Cardiac arrest, cause unspecified; T42.4X2A Poisoning by benzodiazepines, intentional self-harm, initial encounter; E87.6 Hypokalemia; J69.0 Pneumonitis due to inhalation of food and vomit; E83.42 Hypomagnesemia; T42.8X2A Poisoning by antiparkinsonism drugs and other central muscle-tone depressants, intentional self-harm, initial encounter; E83.39 Other disorders of phosphorus metabolism; D64.9 Anemia, unspecified; I45.81 Long QT syndrome; F32.9 Major depressive disorder, single episode, unspecified; T40.2X2A Poisoning by other opioids, intentional self-harm, initial encounter; Z66 Do not resuscitate; G93.41 Metabolic encephalopathy; J96.01 Acute respiratory failure with hypoxia; R45.851 Suicidal ideations; A41.9 Sepsis, unspecified organism; I51.3 Intracardiac thrombosis, not elsewhere classified
CPT/HCPCS: 36415; 36416; 71045; 80053; 80069; 80307; 81003; 82533; 82550; 82553; 82805; 83605; 83735; 83880; 84100; 84132; 84484; 85007; 85025; 85027; 85610; 87040; 92950; 93005; 93010; 93306; 94002; 94003; 94640; 96365; 96366; 96367; 96368; 96375; 96376; 99292; A4216; A4217; G8978-GP-CJ; G8979-GP-CI; G8996-GN-CK; G8997-GN-CJ; J0132; J0171; J0282; J0461; J0692; J0696; J1610; J1650; J1720; J1815; J2310; J2405; J3411; J3475; J3480; J7042; J7050; J7070; J7608; J7620; Q0162